=== PATIENT | male | born 1995 | race Caucasian/White ===

== ENCOUNTER 2018-08-16 13:17 | Inpatient (IN) | payer BC, OTHER ==
[2018-08-16] VITALS (13 sets, daily range): BP systolic 101–137; BP diastolic 67–86; PULSE 102–122; RESP 10–19; Ht 188 cm; Wt 80.0 kg
[~2018-08-16] VITALS: Ht 188 cm; Wt 80.0 kg
--- NOTE | 2018-08-16 13:28 | ERD ---
ER Documentation Chief Complaint Chief Complaint bib self, cc: "high heart rate, I think I have DKA" HPI The patient is a 23-year-old male, presenting to the ER because of vomiting, dry mouth, palpitation for 1 day, had similar symptom when he was diagnosed with DKA and new onset diabetes about 8 years ago. He is compliant with his medication, has had nasal congestion and cough for the last couple weeks, denies chest pain, dyspnea, abdominal pain, dysuria, diarrhea. He complains of polyuria. He does not smoke nor drink, smoke marijuana Past medical history: Diabetes mellitus Past surgical history: None ROS All systems reviewed and are negative except as per history of present illness. Medications Home Meds Reported Medications Insulin Glargine* (Lantus*) 100 Unit/Ml Soln, 48 UNIT SC QPM, #1 VIAL 08/16/18 Insulin Lispro (Humalog) 100 Unit/1 Ml Cartridge, 1-15 UNIT SQ PC MEALS, EA 08/16/18 Allergies Allergies: Coded Allergies: amoxicillin (Verified Allergy, Severe, 08/16/18) clavulanic acid (Verified Allergy, Severe, 08/16/18) Physical Exam Vitals Vital Signs Date Temp Pulse Resp B/P (MAP) Pulse Ox O2 O2 Flow FiO2 Time Delivery Rate 08/16/18 98.8 119 17 115/77 98 Room Air 15:07 (90) 08/16/18 98.2 123 19 118/89 99 Room Air 14:10 (99) 08/16/18 98.2 140 19 135/88 100 13:22 (104) Physical Exam Const: No acute distress. Dehydrated Head: Atraumatic. Eyes: Normal Conjunctiva. ENT: Normal External Ears, Nose and Mouth. Neck: Full range of motion. No meningismus. Resp: Clear to auscultation bilaterally. Cardio: Regular tachycardic Abd: Soft, non distended, normal bowel sounds, non tender. Skin: No petechiae or rashes. Back: No midline or flank tenderness. Ext: No cyanosis, or edema. Neur: Awake and alert. No focal deficit Psych: Normal Mood and Affect. Result Diagram: 08/16/18 1400 08/16/18 0638 Results 24 hrs Laboratory Tests Test 08/16/18 13:34 08/16/18 13:49 08/16/18 14:00 08/16/18 15:05 Blood Gas Blood venous Specimen Source Arterial Blood 08/16/2018 1:45: Date Drawn 29 PM Arterial Blood OTHER Gas Puncture Site Atilio Test N/A Venous Blood pH 7.230 Venous Blood 29.0 mmHG pCO2 (Temp Corrected) Venous Blood pO2 41.0 mmHG (Temp Corrected) Venous Blood 11.9 mmol/L HCO3 Venous Blood 71.1 mmHG Oxygen Saturation Venous Blood -13.9 mmol/L Base Excess Venous Blood 18.3 g/dl Total Hemoglobin Venous Blood 70.7 % Oxyhemoglobin Venous Blood 0.3 % Methemoglobin Blood Gas A-a O2 74.0 mmHg Differential Carboxyhemoglobi 0.3 % n Blood Gas 37.0 C Temperature Blood Gas ROOM AIR Modality FiO2 21.0 % Blood Gas JOSHI Critical Value Read Back Blood Gas MDA Notified Whom Blood Gas 08/16/2018 1:50: Notified Time 19 PM Bedside Glucose 576 mg/dL 343 mg/dL White Blood 10.0 10^3/ul Count Red Blood Count 5.46 10^6/ul Hemoglobin 16.8 g/dl Hematocrit 50.9 % Mean Corpuscular 93.2 fl Volume Mean Corpuscular 30.8 pg Hemoglobin Mean Corpuscular 33.0 g/dl Hemoglobin Shameka nt Red Cell 13.0 % Distribution Width Platelet Count 266 10^3/UL Mean Platelet 8.8 fl Volume Immature 0.400 % Granulocytes % Neutrophils % 79.1 % Lymphocytes % 14.3 % Monocytes % 5.9 % Eosinophils % 0.0 % Basophils % 0.3 % Nucleated Red 0.0 /100WBC Blood Cells % Immature 0.040 10^3/ul Granulocytes # Neutrophils # 7.9 10^3/ul Lymphocytes # 1.4 10^3/ul Monocytes # 0.6 10^3/ul Eosinophils # 0.0 10^3/ul Basophils # 0.0 10^3/ul Nucleated Red 0.0 10^3/ul Blood Cells # Urine Color STRAW Urine Clarity CLEAR Urine pH 5.0 Urine Specific 1.030 [place] Urine Ketones 2+ mg/dL Urine Nitrite NEGATIVE mg/dL Urine Bilirubin NEGATIVE mg/dL Urine NEGATIVE mg/dL Urobilinogen Urine Leukocyte NEGATIVE Brett/ul Esterase Urine Hemoglobin NEGATIVE mg/dL Urine Glucose 3+ mg/dL Urine Total NEGATIVE mg/dl Protein Sodium Level 137 mmol/L Potassium Level mmol/L Chloride Level 95 mmol/L Carbon Dioxide 12 mmol/L Level Anion Gap 30 Blood Urea 13 mg/dl Nitrogen Creatinine 1.00 mg/dl Est Glomerular > 60 mL/min Filtrat Rate mL/min Glucose Level 546 mg/dl Hemoglobin A1c 13.1 % Calcium Level 10.1 mg/dl Phosphorus Level 5.5 mg/dl Magnesium Level 1.8 mg/dl Urine Opiates Negative Screen Urine Negative Barbiturates Urine Negative Amphetamines Screen Urine Negative Benzodiazepines Screen Urine Cocaine Negative Screen Urine Negative Cannabinoids Ethyl Alcohol < 10.0 mg/dl Level Test 08/16/18 16:09 08/16/18 16:10 Bedside Glucose 281 mg/dL Sodium Level 139 mmol/L Potassium Level 4.3 mmol/L Chloride Level 100 mmol/L Carbon Dioxide 16 mmol/L Level Anion Gap 23 Blood Urea 12 mg/dl Nitrogen Creatinine 0.78 mg/dl Est Glomerular > 60 mL/min Filtrat Rate mL/min Glucose Level 287 mg/dl Calcium Level 9.5 mg/dl Phosphorus Level 3.4 mg/dl Magnesium Level 2.0 mg/dl Current Medications Medications Dose Sig/Paulie Start Time Status Last (Trade) Ordered Route PRN Stop Time Admin Dose Reason Admin Sodium 760 ml @ ONCE ONCE 08/16/18 DC 08/16/18 Chloride 760 mls/hr IV 14:00 14:09 08/16/18 14:59 Potassium 1,000 ml @ Q0M IV 08/16/18 Chloride/Sodi 0 mls/hr 15:11 um Chloride Potassium 1,000 ml @ Q0M IV 08/16/18 Chloride/Dext 0 mls/hr 15:11 marcus/ Sod Cl Potassium 1,000 ml @ Q0M IV 08/16/18 08/16/18 Chloride/Sodi 0 mls/hr 15:11 17:16 um Chloride Potassium 1,000 ml @ Q0M IV 08/16/18 08/16/18 Chloride/Dext 0 mls/hr 15:11 17:18 marcus/ Sod Cl Sodium 1,000 ml @ Q0M IV 08/16/18 Chloride 0 mls/hr 15:11 1,000 ml @ Q0M IV 08/16/18 Dextrose/Sodi 0 mls/hr 15:11 um Chloride Insulin 101 ml @ ER DKA 08/16/18 08/16/18 Human 7.64 mls/hr PROTOCOL IV 15:30 17:17 Regular 100 unit/ Sodium Chloride Lactated 760 ml @ ONCE ONCE 08/16/18 DC 08/16/18 Ringer's 760 mls/hr IV 15:30 15:20 08/16/18 16:30 HYPOGLYCEM 08/16/18 Miscellaneous HYPOGLYCEMIA PROTOCOL PRN 15:30 TREATMENT XX Information HYPOGLYCEMIA (* (BS<70) Miscellaneous Pharmacy Order) Dextrose 50 ml Q15M PRN 08/16/18 (D50w IV DECREASED 15:30 Syringe) GLUCOSE Dextrose 25 ml Q15M PRN 08/16/18 (D50w IV DECREASED 15:30 Syringe) GLUCOSE Procedures/[place] [id number] Radiology Main Line: [phone] DIAGNOSTIC IMAGING REPORT Patient: MARITZA RILEY : 1995 Age: 23 Sex: M MR #: [id number] DOS: 08/16/18 1343 Ordering MD: TYLER JOSHI MD Location: E/R Room/Bed: PROCEDURE: XR Chest. CLINICAL INDICATION: Cough TECHNIQUE: A single AP view of the chest was obtained. COMPARISON: None. FINDINGS: No focal airspace opacification, pleural effusion or pneumothorax is seen. The cardiomediastinal silhouette is within normal limits for size. The osseous structures are unremarkable. IMPRESSION: Unremarkable chest x-ray. RPTAT: HH .Samantha Sellers MD, MD Date Time Electronically viewed and signed by .Samantha Sellers MD, MD on 08/16/2018 14:06 .G/ CC: TYLER JOSHI MD [phone] EKG: Read by emergency physician Rate/Rhythm: Sinus tachycardia 118 beats/min QRS, ST, T-waves: No ST elevation, no T inversion, CANDY Impression: Abnormal EKG MEDICAL MAKING DECISION: The patient is 23-year-old male, presenting with acute DKA, was immediately treated via DKA protocol with good response The differential diagnoses considered include but are not limited to UTI, pneumonia, medical noncompliance, dehydration Critical Care: Time: 35 minutes excluding all billable procedures. Treatments/Evaluations: Close monitoring and treatment of unstable vital signs, cardiorespiratory, and neurologic status, while maintaining tight balance of fluid, respiratory, and cardiac interventions. Departure Diagnosis: Primary Impression: DKA (diabetic ketoacidoses) Condition: Stable Comments I discussed the findings with the patient. I discussed the patient with the hospitalist Dr. Alexis at 3:50 PM. who was made aware of the lab, the treatment, the patient condition. The patient is admitted to [facility] Disclaimer: Inadvertent spelling and grammatical errors are likely due to EHR/dictation software use and do not reflect on the overall quality of patient care. Also, please note that the electronic time recorded on this note does not necessarily reflect the actual time of the patient encounter. TYLER JOSHI MD Aug 16, 2018 13:28
[2018-08-16] MEDS ORDERED: SOD CHLORIDE 0.9% 760 ML IV ONE (14:00)
[2018-08-16] MEDS ORDERED: INSU100C SQ (14:18)
[2018-08-16] MEDS ORDERED: LANT3I SC (14:18)
[2018-08-16] MEDS ORDERED: SOD CHLORIDE 0.9% 1,000 ML IV SCH (15:11)
[2018-08-16] MEDS ORDERED: DEXTROSE 10 %/0.45 % NACL 1,000 ML IV SCH (15:11)
[2018-08-16] MEDS ORDERED: NS + KCL 40 MEQ 1,000 ML IV SCH (15:11)
[2018-08-16] MEDS ORDERED: NS + KCL 30 MEQ 1,000 ML IV SCH (15:11)
[2018-08-16] MEDS ORDERED: D10/0.45% NACL + KCL 40 MEQ 1,000 ML IV SCH (15:11)
[2018-08-16] MEDS ORDERED: DEXTROSE 50% 50 ML SYRINGE IV PRN ×2 (15:30)
[2018-08-16] MEDS ORDERED: LACTATED RINGER'S 760 ML IV ONE (15:30)
[2018-08-16] MEDS ORDERED: INSULIN REGULAR, HUMAN 100 UNIT in SOD CHLORIDE 0.9% 100 ML IV SCH ×2 (15:30)
--- NOTE | 2018-08-16 16:43 | HP ---
Date/Time of Note Date/Time of Note DATE: 08/16/18 TIME: 16:40 Assessment/Plan VTE Prophylaxis SCD applied (from Nsg): Yes Pharmacological prophylaxis: NA/contraindicated Pharm contraindication: low risk/ambulating Lines/Catheters IV Catheter Type (from Nrsg): Saline Lock Assessment/Plan Hospital Course 1. DKA in a patient with type 1 diabetes Admit to ICU DKA protocol with insulin and fluids as well as electrolyte replacement A1c 13.1 and hence poorly controlled No evidence of sepsis or infection Prophylaxis: SCDs Result Diagram: 08/16/18 1400 08/16/18 1400 Results 24hrs Laboratory Tests Test 08/16/18 13:34 08/16/18 13:49 08/16/18 14:00 08/16/18 15:05 Blood Gas Blood venous Specimen Source Arterial Blood 08/16/2018 1:45:2 Date Drawn 9 PM Arterial Blood OTHER Gas Puncture Site Atilio Test N/A Venous Blood pH 7.230 L Venous Blood pCO2 29.0 L (Temp Corrected) Venous Blood pO2 41.0 H (Temp Corrected) Venous Blood HCO3 11.9 L Venous Blood 71.1 Oxygen Saturation Venous Blood Base -13.9 L Excess Venous Blood 18.3 Total Hemoglobin Venous Blood 70.7 Oxyhemoglobin Venous Blood 0.3 Methemoglobin Blood Gas A-a O2 74.0 Differential Carboxyhemoglobin 0.3 Blood Gas 37.0 Temperature Blood Gas ROOM AIR Modality FiO2 21.0 Blood Gas JOSHI Critical Value Read Back Blood Gas MDA Notified Whom Blood Gas 08/16/2018 1:50:1 Notified Time 9 PM Bedside Glucose 576 *H 343 H White Blood Count 10.0 Red Blood Count 5.46 Hemoglobin 16.8 Hematocrit 50.9 Mean Corpuscular 93.2 Volume Mean Corpuscular 30.8 Hemoglobin Mean Corpuscular 33.0 Hemoglobin Concen t Red Cell 13.0 Distribution Width Platelet Count 266 Mean Platelet 8.8 Volume Immature 0.400 Granulocytes % Neutrophils % 79.1 H Lymphocytes % 14.3 L Monocytes % 5.9 Eosinophils % 0.0 Basophils % 0.3 Nucleated Red 0.0 Blood Cells % Immature 0.040 H Granulocytes # Neutrophils # 7.9 H Lymphocytes # 1.4 Monocytes # 0.6 Eosinophils # 0.0 Basophils # 0.0 Nucleated Red 0.0 Blood Cells # Urine Color STRAW Urine Clarity CLEAR Urine pH 5.0 Urine Specific 1.030 [place] Urine Ketones 2+ H Urine Nitrite NEGATIVE Urine Bilirubin NEGATIVE Urine NEGATIVE Urobilinogen Urine Leukocyte NEGATIVE Esterase Urine Hemoglobin NEGATIVE Urine Glucose 3+ H Urine Total NEGATIVE Protein Sodium Level 137 Potassium Level Chloride Level 95 L Carbon Dioxide 12 L Level Anion Gap 30 H Blood Urea 13 Nitrogen Creatinine 1.00 Est Glomerular > 60 Filtrat Rate mL/min Glucose Level 546 *H Hemoglobin A1c 13.1 H Calcium Level 10.1 Phosphorus Level 5.5 H Magnesium Level 1.8 Urine Opiates Negative Screen Urine Negative Barbiturates Urine Negative Amphetamines Screen Urine Negative Benzodiazepines Screen Urine Cocaine Negative Screen Urine Negative Cannabinoids Ethyl Alcohol < 10.0 H Level Test 08/16/18 16:09 Bedside Glucose 281 H HPI/ROS Admit Date/Time Admit Date/Time August 16, 2018 Hx of Present Illness Patient is a 23-year-old male with a history of type 1 diabetes diagnosed 8 years ago. Patient has not had an episode of DKA since his diagnosis, patient presents with malaise as well as cough for the past several days. In the ER patient was noted to be in DKA, patient denies any dysuria, changes in bowel habits or fevers. Patient started on DKA protocol in the ER. ROS Constitutional: nausea Eyes: no complaints ENT: no complaints Respiratory: cough Cardiovascular: no complaints Gastrointestinal: no complaints Genitourinary: no complaints Musculoskeletal: no complaints Skin: no complaints Neurologic: no complaints Endocrine: no complaints Lymphatic: no complaints Psychological: no complaints, nl mood/affect Immunologic: no complaints PMH/Family/Social Past Medical History Medical History: diabetes Medications Current Medications Potassium Chloride/Sodium Chloride 1,000 ml @ 0 mls/hr Q0M IV ; Start 08/16/18 at 15:11 Potassium Chloride/Dextrose/ Sod Cl 1,000 ml @ 0 mls/hr Q0M IV ; Start 08/16/18 at 15:11 Potassium Chloride/Sodium Chloride 1,000 ml @ 0 mls/hr Q0M IV ; Start 08/16/18 at 15:11 Potassium Chloride/Dextrose/ Sod Cl 1,000 ml @ 0 mls/hr Q0M IV ; Start 08/16/18 at 15:11 Sodium Chloride 1,000 ml @ 0 mls/hr Q0M IV ; Start 08/16/18 at 15:11 Dextrose/Sodium Chloride 1,000 ml @ 0 mls/hr Q0M IV ; Start 08/16/18 at 15:11 Insulin Human Regular 100 unit/ Sodium Chloride 101 ml @ 7.64 mls/hr ER DKA PROTOCOL IV ; Start 08/16/18 at 15:30 Miscellaneous Information (* Miscellaneous Pharmacy Order) HYPOGLYCEMIA TREATMENT HYPOGLYCEM PROTOCOL PRN XX HYPOGLYCEMIA (BS<70); Start 08/16/18 at 15:30 Dextrose (D50w Syringe) 50 ml Q15M PRN IV DECREASED GLUCOSE; Start 08/16/18 at 15:30 Dextrose (D50w Syringe) 25 ml Q15M PRN IV DECREASED GLUCOSE; Start 08/16/18 at 15:30 Coded Allergies: amoxicillin (Verified Allergy, Severe, 08/16/18) clavulanic acid (Verified Allergy, Severe, 08/16/18) Past Surgical History Past Surgical Hx: no surgical history Family History Significant Family History: no pertinent family hx Social History Alcohol Use: rarely Smoking Status: Never smoker Drug Use: none Exam/Review of Systems Vital Signs Vitals Vital Signs Date Temp Pulse Resp B/P (MAP) Pulse Ox O2 O2 Flow FiO2 Time Delivery Rate 08/16/18 98.8 119 17 115/77 98 Room Air 15:07 (90) Exam Constitutional: alert, oriented Respiratory: clear to auscultation Cardiovascular: regular rate and rhythm Gastrointestinal: soft; No distended Musculoskeletal: nl extremities to inspection MAURISIO CLAY Aug 16, 2018 16:43
[2018-08-16] MEDS ORDERED: ACETAMINOPHEN 325 MG TAB PO PRN (17:00)
[2018-08-16] MEDS ORDERED: morphine 2 MG INJ IV PRN (17:00)
[2018-08-16] MEDS ORDERED: DOCUSATE SODIUM 100 MG CAP PO PRN (17:00)
[2018-08-16] MEDS ORDERED: NACL 0.9% 3 ML SYG IV SCH (17:00)
[2018-08-16] MEDS ORDERED: ONDANSETRON 4 MG INJ IV PRN (17:00)
[2018-08-16] MEDS ORDERED: ZOLPIDEM 5 MG TAB PO PRN (17:00)
[2018-08-16] MEDS ORDERED: HYDROCODONE/APAP (5/325) TAB PO PRN (17:00)
[2018-08-16] MEDS: D10/0.45% NACL + KCL 30 MEQ 1,000 ML IV SCH ×2 (17:18→22:23)
[2018-08-17] VITALS (10 sets, daily range): BP systolic 105–128; BP diastolic 60–84; PULSE 89–103; RESP 13–20
[2018-08-17] MEDS ORDERED: INSULIN GLARGINE [LANTus] (100 UNITS/ML) SYG SC ONE ×2 (00:30)
[2018-08-17] MEDS: D10/0.45% NACL + KCL 30 MEQ 1,000 ML IV SCH (03:17)
[2018-08-17] MEDS ORDERED: POTASSIUM CHLORIDE (SR) 20 MEQ TAB PO ONE ×2 (04:12→08:30)
[2018-08-17] MEDS ORDERED: DEXTROSE 50% 50 ML SYRINGE IV PRN ×2 (04:30)
[2018-08-17] MEDS ORDERED: GLUCAGON 1 MG INJ IM PRN (04:30)
[2018-08-17] MEDS ORDERED: GLUCOSE GEL 15 GRAM TUBE PO PRN ×2 (04:30)
[2018-08-17] MEDS ORDERED: GLUCOSE GEL 15 GRAM TUBE BUCCAL PRN (04:30)
[2018-08-17] MEDS ORDERED: INSULIN ASPART [NOVOLOG] 3 ML PEN SC SCH ×2 (07:35)
--- NOTE | 2018-08-17 09:52 | PDOCDIS ---
Discharge Instructions CONDITION [id number] Patient Condition: [id number] Good HOME CARE INSTRUCTIONS: [id number] Special Diet: [id number] DIABETIC ACTIVITY: [id number] Activity Restrictions: [id number] No Restrictions FOLLOW UP/APPOINTMENTS Follow-up Plan FOLLOW UP WITH YOUR PCP IN 1-2 WEEKS MAURISIO CLAY Aug 17, 2018 09:52
[2018-08-17] MEDS ORDERED: LANT3I SC (10:16)
[2018-08-17] MEDS ORDERED: INSU100I12 SQ (10:16)
--- NOTE | 2018-08-17 14:47 | DS ---
Date/Time of Note Date/Time of Note DATE: 08/17/18 TIME: 14:38 Discharge Summary Admission/Discharge Info Admit Date/Time Aug 16, 2018 at 16:10 Discharge Date/Time Aug 17, 2018 at 11:00 Discharge Diagnosis 1. DKA in a patient with type 1 diabetes-resolved Status post DKA protocol DC with insulin A1c 13.1 and hence poorly controlled, patient understands the importance of outpatient follow-up No evidence of sepsis or infection Patient Condition: Good Hospital Course Patient is a 23-year-old male with a history of type 1 diabetes diagnosed 8 years ago. Patient presented with DKA, patient was admitted to the ICU and was started on DKA protocol. Patient had resolution of DKA and was stable for DC. Patient's A1c was 13.1 and hence poorly controlled, patient was advised on appropriate outpatient follow-up. Patient was prescribed insulin upon DC. On the day of discharge patient's vitals, labs and physical exam are stable patient has no acute complaints questions are answered. Home Meds Active Scripts Insulin Lispro (Humalog Kwikpen U-100) 100 Unit/1 Ml Insuln.pen, 5 UNIT SQ AC A, #1 EA 3 Refills Prov:MAURISIO CLAY 08/17/18 Insulin Glargine* (Lantus*) 100 Unit/Ml Soln, 50 UNIT SC QHS, #1 VIAL 3 Refills Prov:MAURISIO CLAY 08/17/18 Reported Medications Insulin Glargine* (Lantus*) 100 Unit/Ml Soln, 48 UNIT SC QPM, #1 VIAL 08/16/18 Insulin Lispro (Humalog) 100 Unit/1 Ml Cartridge, 1-15 UNIT SQ PC MEALS, EA 08/16/18 Follow-up Plan FOLLOW UP WITH YOUR PCP IN 1-2 WEEKS Primary Care Provider Care Physician No Primary Time spent on discharge: > 30 minutes MAURISIO CLAY Aug 17, 2018 14:47
[2018-08-18] MEDS ORDERED: ACCU-CHEK XX SCH (02:00)
== END 2018-08-17 11:00 | disposition home or self-care (01) | DRG 639 ==
LOC: E/R 13:17 → ICU 16:10
PROVIDERS: ADMIT Internal Medicine; ATTEND Internal Medicine
DX: E11.10 Type 2 diabetes mellitus with ketoacidosis without coma (principal)
CPT/HCPCS: 36415; 71045; 80048; 80307; 81003; 82803; 82962; 83036; 83735; 84100; 85025; 87081; 93005; 96360; J1815; J7030; J7120

== ENCOUNTER 2019-03-07 12:14 | Inpatient (IN) | payer BC, MEDICAID, OTHER ==
[~2019-03-07] VITALS: Ht 188 cm; Wt 87.2 kg
[2019-03-07] VITALS (9 sets, daily range): BP systolic 105–134; BP diastolic 53–90; PULSE 86–114; RESP 13–19; Ht 188 cm; Wt 87.2 kg
[~2019-03-07 12:14] MED LIST: INSU100C SQ; INSU100I12 SQ; Insulin Glargine SC; LANT3I SC; NOVO3I SC
[2019-03-07] MEDS ORDERED: SOD CHLORIDE 0.9% 1,000 ML IV STA (12:24)
[2019-03-07] MEDS ORDERED: LACTATED RINGER'S 1,000 ML IV STA (12:24)
[2019-03-07] MEDS ORDERED: ONDANSETRON 4 MG INJ IV STA (12:24)
[2019-03-07] MEDS ORDERED: D10/0.45% NACL + KCL 40 MEQ 1,000 ML IV SCH (13:09)
[2019-03-07] MEDS ORDERED: NS + KCL 40 MEQ 1,000 ML IV SCH (13:09)
[2019-03-07] MEDS ORDERED: SOD CHLORIDE 0.9% 1,000 ML IV SCH (13:09)
[2019-03-07] MEDS ORDERED: DEXTROSE 10%/0.45% NACL 1,000 ML IV SCH (13:09)
[2019-03-07] MEDS ORDERED: DEXTROSE 50% 50 ML SYRINGE IV PRN ×2 (13:30)
--- NOTE | 2019-03-07 13:53 | ERD ---
ER Documentation Chief Complaint Chief Complaint VOMITING X 10, TACHYPNEIC HPI 23-year-old male presenting with vomiting and generalized abdominal aching that started this morning. He states that he ate noodles last night at dinner. He is a type I diabetic and uses insulin regularly. He notices sugar was high so he came in for evaluation. Denies any fevers or chills. No diarrhea. No chest pain or shortness of breath. ROS All systems reviewed and are negative except as per history of present illness. Medications Home Meds Reported Medications Insulin Lispro (Humalog Kwikpen U-100) 100 Unit/1 Ml Insuln.pen, 1 UNIT SQ WITH MEALS, EA 03/07/19 Insulin Glargine* (Lantus*) 100 Unit/Ml Soln, 45 UNIT SC QHS, #1 VIAL 03/07/19 Discontinued Reported Medications Insulin Glargine* (Lantus*) 100 Unit/Ml Soln, 48 UNIT SC QPM, #1 VIAL 08/16/18 Insulin Lispro (Humalog) 100 Unit/1 Ml Cartridge, 1-15 UNIT SQ PC MEALS, EA 08/16/18 Discontinued Scripts Insulin Lispro (Humalog Kwikpen U-100) 100 Unit/1 Ml Insuln.pen, 5 UNIT SQ AC A, #1 EA 3 Refills Prov:MAURISIO CLAY 08/17/18 Insulin Glargine* (Lantus*) 100 Unit/Ml Soln, 50 UNIT SC QHS, #1 VIAL 3 Refills Prov:CLAYTON CLAYA 08/17/18 Allergies Allergies: Coded Allergies: amoxicillin (Verified Allergy, Severe, 03/07/19) clavulanic acid (Verified Allergy, Severe, 03/07/19) PMhx/Soc History of Surgery: No Hx Neurological Disorder: Yes (Attention Deficit Disorder) Hx Respiratory Disorders: No Hx Cardiac Disorders: No Hx Psychiatric Problems: No Hx Miscellaneous Medical Probl: No Hx Alcohol Use: No Hx Substance Use: Yes (Marijuana) Hx Tobacco Use: No Smoking Status: Current every day smoker FmHx Family History: No diabetes Physical Exam Vitals Vital Signs Date Temp Pulse Resp B/P (MAP) Pulse Ox O2 O2 Flow FiO2 Time Delivery Rate 03/07/19 100 18 131/84 99 Room Air 13:20 (100) 03/07/19 97.8 114 24 135/81 99 12:21 (99) Physical Exam Const: No acute distress Head: Atraumatic Eyes: Normal Conjunctiva, PERRLA, EOMI ENT: Dry mucous membranes. Normal External Ears, Nose and Mouth. Neck: Full range of motion. No meningismus. Resp: Tachypnea. Clear to auscultation bilaterally Cardio: Tachycardic with regular rhythm, no murmurs Abd: Soft, non tender, non distended. Normal bowel sounds Skin: No petechiae or rashes Back: No midline or flank tenderness Ext: No cyanosis, or edema Neur: Awake and alert, oriented x3, normal speech, cranial nerves intact, strength and sensations intact in all 4 extremities Psych: Normal Mood and Affect Result Diagram: 03/07/19 1236 03/07/19 1236 Results 24 hrs Laboratory Tests Test 03/07/19 12:30 03/07/19 12:36 03/07/19 13:20 03/07/19 13:45 Bedside Glucose 436 mg/dL White Blood 13.0 10^3/ul Count Red Blood Count 5.64 10^6/ul Hemoglobin 17.2 g/dl Hematocrit 50.7 % Mean Corpuscular 89.9 fl Volume Mean Corpuscular 30.5 pg Hemoglobin Mean Corpuscular 33.9 g/dl Hemoglobin Shameka nt Red Cell 12.5 % Distribution Width Platelet Count 281 10^3/UL Mean Platelet 9.2 fl Volume Immature 0.600 % Granulocytes % Neutrophils % 82.2 % Lymphocytes % 12.0 % Monocytes % 4.7 % Eosinophils % 0.1 % Basophils % 0.4 % Nucleated Red 0.0 /100WBC Blood Cells % Immature 0.080 10^3/ul Granulocytes # Neutrophils # 10.7 10^3/ul Lymphocytes # 1.6 10^3/ul Monocytes # 0.6 10^3/ul Eosinophils # 0.0 10^3/ul Basophils # 0.1 10^3/ul Nucleated Red 0.0 10^3/ul Blood Cells # Sodium Level 139 mmol/L Potassium Level 5.2 mmol/L Chloride Level 98 mmol/L Carbon Dioxide 15 mmol/L Level Anion Gap 26 Blood Urea 14 mg/dl Nitrogen Creatinine 0.97 mg/dl Est Glomerular > 60 mL/min Filtrat Rate mL/min Glucose Level 478 mg/dl Hemoglobin A1c 12.7 % Calcium Level 10.5 mg/dl Total Bilirubin 1.1 mg/dl Direct Bilirubin 0.00 mg/dl Indirect 1.1 mg/dl Bilirubin Aspartate Amino 27 IU/L Transf (AST/SGOT ) Alanine 29 IU/L Aminotransferase (ALT/SGPT) Alkaline 133 IU/L Phosphatase Total Protein 8.4 g/dl Albumin 5.4 g/dl Globulin 3.00 g/dl Albumin/Globulin 1.80 Ratio Urine Color STRAW Urine Clarity CLEAR Urine pH 5.0 Urine Specific 1.027 [place] Urine Ketones 2+ mg/dL Urine Nitrite NEGATIVE mg/dL Urine Bilirubin NEGATIVE mg/dL Urine NEGATIVE mg/dL Urobilinogen Urine Leukocyte NEGATIVE Brett/ul Esterase Urine Hemoglobin NEGATIVE mg/dL Urine Glucose 3+ mg/dL Urine Total NEGATIVE mg/dl Protein Blood Gas Blood venous Specimen Source Arterial Blood 03/07/2019 1:40:0 Date Drawn 0 PM Arterial Blood VENOUS LINE Gas Puncture Site Atilio Test N/A Venous Blood pH 7.182 Venous Blood 36.1 mmHG pCO2 (Temp Corrected) Venous Blood pO2 24.0 mmHG (Temp Corrected) Venous Blood 13.2 mmol/L HCO3 Venous Blood 36.5 mmHG Oxygen Saturation Venous Blood -14.1 mmol/L Base Excess Venous Blood 16.9 g/dl Total Hemoglobin Venous Blood 36.0 % Oxyhemoglobin Venous Blood 0.5 % Methemoglobin Carboxyhemoglobi 0.9 % n Blood Gas 37.0 C Temperature Blood Gas ROOM AIR Modality FiO2 21.0 % Blood Gas PATRICIA Critical Value MIGUEL RN Read Back Blood Gas Notified Whom Blood Gas 03/07/2019 1:58:0 Notified Time 0 PM Current Medications Medications Dose Sig/Paulie Start Time Status Last (Trade) Ordered Route PRN Stop Time Admin Dose Reason Admin Sodium 1,000 ml @ Q1H STAT 03/07/19 DC 03/07/19 Chloride 1,000 mls/hr IV 12:24 03/07/19 12:47 13:23 Lactated 1,000 ml @ Q1H STAT 03/07/19 DC 03/07/19 Ringer's 1,000 mls/hr IV 12:24 03/07/19 12:48 13:23 Ondansetron 4 mg ONCE STAT 03/07/19 DC 03/07/19 HCl (Zofran IV 12:24 03/07/19 12:47 Inj) 12:25 Potassium 1,000 ml @ Q0M IV 03/07/19 Chloride/Sodi 0 mls/hr 13:09 um Chloride Potassium 1,000 ml @ Q0M IV 03/07/19 Chloride/Dext 0 mls/hr 13:09 marcus/ Sod Cl Potassium 1,000 ml @ Q0M IV 03/07/19 Chloride/Sodi 0 mls/hr 13:09 um Chloride Potassium 1,000 ml @ Q0M IV 03/07/19 Chloride/Dext 0 mls/hr 13:09 marcus/ Sod Cl Sodium 1,000 ml @ Q0M IV 03/07/19 Chloride 0 mls/hr 13:09 1,000 ml @ Q0M IV 03/07/19 Dextrose/Sodi 0 mls/hr 13:09 um Chloride Insulin 101 ml @ ER DKA 03/07/19 Human 9.09 mls/hr PROTOCOL IV 13:30 Regular 100 unit/ Sodium Chloride HYPOGLYCEM 03/07/19 Miscellaneous HYPOGLYCEMIA PROTOCOL PRN 13:30 TREATMENT XX Information .HYPOGLYCEMIA (* PROTOCOL Miscellaneous Pharmacy Order) Dextrose 50 ml Q15M PRN 03/07/19 (D50w IV 13:30 Syringe) .DECREASED GLUCOSE Dextrose 25 ml Q15M PRN 03/07/19 (D50w IV 13:30 Syringe) .DECREASED GLUCOSE Ondansetron 4 mg Q6H PRN 03/07/19 HCl (Zofran IV NAUSEA 14:00 Inj) AND/OR VOMITING 650 mg Q6H PRN 03/07/19 Acetaminophen PO PAIN 14:00 (Tylenol LEVEL 1-3 OR Tab) FEVER Docusate 100 mg Q12H PRN 03/07/19 Sodium PO 14:00 (Colace) CONSTIPATION Magnesium 30 ml DAILY PRN 03/07/19 Hydroxide PO 14:00 (Milk Of Mag) CONSTIPATION Famotidine 20 mg Q12 IV 03/07/19 (Pepcid Iv) 21:00 Enoxaparin 40 mg DAILY SC 03/08/19 Sodium 09:00 (Lovenox) Procedures/[facility] EMERGENT LABS AND DIAGNOSTIC STUDIES: Lab Results above were reviewed and interpreted by me. CBC: Mild leukocytosis, likely stress response CMP: Borderline hyperkalemia with evidence of acidosis and hyperglycemia, concerning for DKA. No evidence of clinically significant electrolyte abnormality, acidosis, renal failure, liver disease UA: 2+ ketones. 3+ glucose. No evidence of infection Initial Nursing notes reviewed. Previous Medical Records requested via the Electronic Health Record. EMERGENCY DEPARTMENT COURSE / MEDICAL DECISION MAKING: Patient is presenting with vomiting and hyperglycemia, concerning for possible DKA. Lower suspicion for acute surgical abdomen or gastroenteritis. He was tachycardic and tachypneic on arrival. 2 L IV fluid ordered initially. Labs are consistent with DKA. Protocol initiated with insulin and fluids. Patient will be admitted to the ICU for further management and stabilization. Critical Care Time: 35 minutes Treatments/Evaluations: Close monitoring and treatment of unstable vital signs, cardiorespiratory, and neurologic status, while maintaining tight balance of fluid, respiratory, and cardiac interventions. This time includes discussing the case with the patient and the patients family. This time does not include all procedures stated elsewhere in this record. This time also includes reviewing old records, labs and radiological studies. This time includes examining and re- examining the patient. Additionally, this time also includes arranging care with admitting and consulting physicians. Departure Diagnosis: Primary Impression: Diabetic ketoacidosis Diabetes mellitus type: type 1 Diabetes mellitus complication detail: without coma Qualified Codes: E10.10 - Type 1 diabetes mellitus with ketoacidosis without coma Condition: Critical EKJERROD ORTEZ MD Mar 07, 2019 13:53
[2019-03-07] MEDS ORDERED: ONDANSETRON 4 MG INJ IV PRN (14:00)
[2019-03-07] MEDS ORDERED: MAGNESIUM HYDROXIDE 30ML CUP PO PRN (14:00)
[2019-03-07] MEDS ORDERED: DOCUSATE SODIUM 100 MG CAP PO PRN (14:00)
[2019-03-07] MEDS ORDERED: ACETAMINOPHEN 325 MG TAB PO PRN (14:00)
[2019-03-07] MEDS: INSULIN REGULAR, HUMAN 100 UNIT in SOD CHLORIDE 0.9% 100 ML IV SCH ×2 (14:23)
[2019-03-07] MEDS: NS + KCL 30 MEQ 1,000 ML IV SCH ×2 (14:24→20:22)
--- NOTE | 2019-03-07 15:25 | HP ---
Date/Time of Note Date/Time of Note DATE: 03/07/19 TIME: 15:08 Assessment/Plan VTE Prophylaxis SCD applied (from Nsg): Yes Pharmacological prophylaxis: LMWH Lines/Catheters IV Catheter Type (from Nrsg): Saline Lock Assessment/Plan Assessment/Plan 1. Acute diabetic ketoacidosis - continue IVF and Insulin drip per DKA protocol - will monitor BMP for closure of gap - Will consult endocrinology for further recommendations given DM is uncontrolled as outpatient - most likely secondary to dehydration following vomiting 2. Diabetes mellitus type 1, uncontrolled - Patient admits to medication compliance and takes Lantus qhs and humalog with meals. - A2c noted 12.7 - Will transition to SQ once gap closes - Endocrinology consultation placed 3. Acute dehydration - IVF on board 4. Anion gap Metabolic acidosis 5. Diet - NPO for now 6. GI ppx - H2 kevin 7. DVT ppx - LMWH 8. Disposition - Admit to ICU for treatment of DKA. Will continue monitoring BMP and once gap closes will transition to SQ Insulin. Result Diagram: 03/07/19 1236 03/07/19 1236 Results 24hrs Laboratory Tests Test 03/07/19 12:30 03/07/19 12:36 03/07/19 13:20 03/07/19 13:45 Bedside Glucose 436 *H White Blood Count 13.0 #H Red Blood Count 5.64 # Hemoglobin 17.2 Hematocrit 50.7 Mean Corpuscular 89.9 Volume Mean Corpuscular 30.5 Hemoglobin Mean Corpuscular 33.9 Hemoglobin Concent Red Cell 12.5 Distribution Width Platelet Count 281 # Mean Platelet 9.2 Volume Immature 0.600 H Granulocytes % Neutrophils % 82.2 H Lymphocytes % 12.0 L Monocytes % 4.7 Eosinophils % 0.1 Basophils % 0.4 Nucleated Red 0.0 Blood Cells % Immature 0.080 H Granulocytes # Neutrophils # 10.7 H Lymphocytes # 1.6 Monocytes # 0.6 Eosinophils # 0.0 Basophils # 0.1 Nucleated Red 0.0 Blood Cells # Sodium Level 139 Potassium Level 5.2 H Chloride Level 98 Carbon Dioxide 15 L Level Anion Gap 26 H Blood Urea 14 Nitrogen Creatinine 0.97 Est Glomerular > 60 Filtrat Rate mL/min Glucose Level 478 *H Hemoglobin A1c 12.7 H Calcium Level 10.5 H Total Bilirubin 1.1 Direct Bilirubin 0.00 Indirect Bilirubin 1.1 Aspartate Amino 27 Transf (AST/SGOT) Alanine 29 Aminotransferase ( ALT/SGPT) Alkaline 133 H Phosphatase Total Protein 8.4 H Albumin 5.4 H Globulin 3.00 Albumin/Globulin 1.80 Ratio Urine Color STRAW Urine Clarity CLEAR Urine pH 5.0 Urine Specific 1.027 [place] Urine Ketones 2+ H Urine Nitrite NEGATIVE Urine Bilirubin NEGATIVE Urine Urobilinogen NEGATIVE Urine Leukocyte NEGATIVE Esterase Urine Hemoglobin NEGATIVE Urine Glucose 3+ H Urine Total NEGATIVE Protein Blood Gas Specimen Blood venous Source Arterial Blood 03/07/2019 1:40:00 Date Drawn PM Arterial Blood Gas VENOUS LINE Puncture Site Atilio Test N/A Venous Blood pH 7.182 *L Venous Blood pCO2 36.1 (Temp Corrected) Venous Blood pO2 24.0 L (Temp Corrected) Venous Blood HCO3 13.2 L Venous Blood 36.5 L Oxygen Saturation Venous Blood Base -14.1 L Excess Venous Blood Total 16.9 Hemoglobin Venous Blood 36.0 Oxyhemoglobin Venous Blood 0.5 Methemoglobin Carboxyhemoglobin 0.9 Blood Gas 37.0 Temperature Blood Gas Modality ROOM AIR FiO2 21.0 Blood Gas Critical PATRICIA MIGUEL RN Value Read Back Blood Gas Notified Whom Blood Gas Notified 03/07/2019 1:58:00 Time PM Test 03/07/19 14:17 Bedside Glucose 321 H HPI/ROS Admit Date/Time Admit Date/Time Mar 07, 2019 at 13:25 Hx of Present Illness 23 yo M with PMH Diabetes type 1 presented to ED with multiple episodes of vomiting this am. Patient states he believes he ate something last night that irritated his stomach. He admits to vomiting 10 times this am with last episode at 11:45. Patient does admit to taking his Lantus last night and took 15 units of Humalog today prior to ED visit since knew he was in DKA. Patient does admit to feeling off balance and shortness of breath with exertion, but denies any chest pain, shortness of breath, palpitations, nausea, further episodes of vomiting, abdominal pain, or urinary issues. In ED patient was found in DKA and started on insulin drip. ROS All 12 systems reviewed and pertinent positives as per HPI. All others negative. Constitutional: chills; No fatigue Eyes: No discharge ENT: No congestion Respiratory: shortness of breath (with ambulation); No cough, No sputum, No wheezing Cardiovascular: No chest pain, No lightheadedness, No palpitations Gastrointestinal: vomiting; No pain, No constipation, No decreased appetite, No nausea Genitourinary: no complaints Musculoskeletal: no complaints Skin: No laceration, No rash Neurologic: No confusion, No dizziness, No focal-weakness, No syncope Endocrine: no complaints Lymphatic: no complaints Psychological: nl mood/affect Immunologic: no complaints PMH/Family/Social Past Medical History Medical History: diabetes Medications Current Medications Potassium Chloride/Sodium Chloride 1,000 ml @ 0 mls/hr Q0M IV ; Start 03/07/19 at 13:09 Potassium Chloride/Dextrose/ Sod Cl 1,000 ml @ 0 mls/hr Q0M IV ; Start 03/07/19 at 13:09 Potassium Chloride/Sodium Chloride 1,000 ml @ 0 mls/hr Q0M IV Last administered on 03/07/19at 14:24; Admin Dose 250 MLS/HR; Start 03/07/19 at 13:09 Potassium Chloride/Dextrose/ Sod Cl 1,000 ml @ 0 mls/hr Q0M IV ; Start 03/07/19 at 13:09 Sodium Chloride 1,000 ml @ 0 mls/hr Q0M IV ; Start 03/07/19 at 13:09 Dextrose/Sodium Chloride 1,000 ml @ 0 mls/hr Q0M IV ; Start 03/07/19 at 13:09 Insulin Human Regular 100 unit/ Sodium Chloride 101 ml @ 9.09 mls/hr ER DKA PROTOCOL IV Last administered on 03/07/19at 14:23; Admin Dose 9.09 MLS/HR; Start 03/07/19 at 13:30 Miscellaneous Information (* Miscellaneous Pharmacy Order) HYPOGLYCEMIA TREATMENT HYPOGLYCEM PROTOCOL PRN XX .HYPOGLYCEMIA PROTOCOL; Start 03/07/19 at 13:30 Dextrose (D50w Syringe) 50 ml Q15M PRN IV .DECREASED GLUCOSE; Start 03/07/19 at 13:30 Dextrose (D50w Syringe) 25 ml Q15M PRN IV .DECREASED GLUCOSE; Start 03/07/19 at 13:30 Ondansetron HCl (Zofran Inj) 4 mg Q6H PRN IV NAUSEA AND/OR VOMITING; Start 03/07/19 at 14:00 Acetaminophen (Tylenol Tab) 650 mg Q6H PRN PO PAIN LEVEL 1-3 OR FEVER; Start 03/07/19 at 14:00 Docusate Sodium (Colace) 100 mg Q12H PRN PO CONSTIPATION; Start 03/07/19 at 14:00 Magnesium Hydroxide (Milk Of Mag) 30 ml DAILY PRN PO CONSTIPATION; Start 03/07/19 at 14:00 Famotidine (Pepcid Iv) 20 mg Q12 IV ; Start 03/07/19 at 21:00 Enoxaparin Sodium (Lovenox) 40 mg DAILY SC ; Start 03/08/19 at 09:00 Coded Allergies: amoxicillin (Verified Allergy, Severe, 03/07/19) clavulanic acid (Verified Allergy, Severe, 03/07/19) Past Surgical History Past Surgical Hx: no surgical history Family History Significant Family History: no pertinent family hx Social History Alcohol Use: none Smoking Status: Current every day smoker Drug Use: none Exam/Review of Systems Vital Signs Vitals Vital Signs Date Temp Pulse Resp B/P (MAP) Pulse Ox O2 O2 Flow FiO2 Time Delivery Rate 03/07/19 96 18 122/105 99 Room Air 14:30 (111) 03/07/19 97.8 12:21 Exam Exam General: no acute distress. answering questions appropriately. HEENT: NC/AT. PERRL. EOM intact. Neck: supple, midline Chest: nontender CVS: S1, S2, regular rate and rhythm. no murmurs lungs: clear to auscultation bilaterally. no wheezing or rhonchi Abd: soft, nontender, nondistended, no rebound or guarding. +BS all quadrants Ext: moving all extremities. no cyanosis, edema, or clubbing Skin: no rashes or lesions appreciated. warm and dry Neuro: no focal deficits appreciated. CN 2-12 intact. motor and sensory intact Additional Comments Home medications noted DELFINA MEJIA MD Mar 07, 2019 15:25
[2019-03-07] MEDS: D10/0.45% NACL + KCL 30 MEQ 1,000 ML IV SCH (15:41)
--- NOTE | 2019-03-07 18:12 | CONS ---
Assessment/Plan Assessment/Plan Problems: (1) Diabetic ketoacidosis Status: Acute Comment: DKA protocol until anion gap closed and CO2 normal. Defer to primary team and will be happy to assist as necessary. Qualifiers: Qualified Codes: E10.10 - Type 1 diabetes mellitus with ketoacidosis without coma (2) Diabetes mellitus type 1, uncontrolled, insulin dependent Status: Chronic Comment: Advised insulin regimen is "basal-heavy." Likely needs less lantus and more meal-time insulin. Will decrease lantus from 45 to 30 units qhs and start Novolog 14 units qac plus alg 2 ISS. This would be equivalent of 1 unit to 6 g carb plus 1 unit to 25 mg/dL over 150 mg/dL. Monitor and adjust doses daily to titrate to goal glucose 80-180 mg/dL. (3) Patient's other noncompliance with medication regimen Status: Chronic Comment: Pt. advised that rapid-acting insulin must be taken BEFORE food intake and that glucose checks should be done at least 4x/d Consultation Date/Type/Reason Admit Date/Time Mar 07, 2019 at 13:25 Date of Consultation: Mar 07, 2019 Type of Consult Endocrinology Reason for Consultation DKA, T1DM OOC Requesting Provider: DELFINA MEJIA MD Date/Time of Note DATE: 03/07/19 TIME: 18:00 Hx of Present Illness 23 y/o C M w/ h/o T1DM x 8 y, longstanding OOC in [facility] until this am when he awoke w/ nausea. Register that this was due to something he ate last night. Subsequently went into DKA and since he recognized the symptoms he took 15 units of Humalog and came to ER. In ER (+) ketonuria, glucose elevated, CO2 15, AG open. Started insulin drip protocol and admitted. Constitutional: poor po, requiring IVF Eyes: no complaints ENT: no complaints Respiratory: no complaints Cardiovascular: no complaints Gastrointestinal: decreased appetite, nausea, vomiting Genitourinary: no complaints Musculoskeletal: no complaints Neurologic: no complaints Past Medical History Medical History: diabetes Home Meds Reported Medications Insulin Lispro (Humalog Kwikpen U-100) 100 Unit/1 Ml Insuln.pen, 1 UNIT SQ WITH MEALS, EA 03/07/19 Insulin Glargine* (Lantus*) 100 Unit/Ml Soln, 45 UNIT SC QHS, #1 VIAL 03/07/19 Discontinued Reported Medications Insulin Glargine* (Lantus*) 100 Unit/Ml Soln, 48 UNIT SC QPM, #1 VIAL 08/16/18 Insulin Lispro (Humalog) 100 Unit/1 Ml Cartridge, 1-15 UNIT SQ PC MEALS, EA 08/16/18 Discontinued Scripts Insulin Lispro (Humalog Kwikpen U-100) 100 Unit/1 Ml Insuln.pen, 5 UNIT SQ AC A, #1 EA 3 Refills Prov:MAURISIO CLAY 08/17/18 Insulin Glargine* (Lantus*) 100 Unit/Ml Soln, 50 UNIT SC QHS, #1 VIAL 3 Refills Prov:MAURISIO CLAY 08/17/18 Medications Current Medications Potassium Chloride/Sodium Chloride 1,000 ml @ 0 mls/hr Q0M IV ; Start 03/07/19 at 13:09 Potassium Chloride/Dextrose/ Sod Cl 1,000 ml @ 0 mls/hr Q0M IV ; Start 03/07/19 at 13:09 Potassium Chloride/Sodium Chloride 1,000 ml @ 0 mls/hr Q0M IV Last administered on 03/07/19at 14:24; Admin Dose 250 MLS/HR; Start 03/07/19 at 13:09 Potassium Chloride/Dextrose/ Sod Cl 1,000 ml @ 0 mls/hr Q0M IV Last administered on 03/07/19at 15:41; Admin Dose 150 MLS/HR; Start 03/07/19 at 13:09 Sodium Chloride 1,000 ml @ 0 mls/hr Q0M IV ; Start 03/07/19 at 13:09 Dextrose/Sodium Chloride 1,000 ml @ 0 mls/hr Q0M IV ; Start 03/07/19 at 13:09 Insulin Human Regular 100 unit/ Sodium Chloride 101 ml @ 9.09 mls/hr ER DKA PROTOCOL IV Last administered on 03/07/19at 14:23; Admin Dose 9.09 MLS/HR; Start 03/07/19 at 13:30 Miscellaneous Information (* Miscellaneous Pharmacy Order) HYPOGLYCEMIA TREATMENT HYPOGLYCEM PROTOCOL PRN XX .HYPOGLYCEMIA PROTOCOL; Start 03/07/19 at 13:30 Dextrose (D50w Syringe) 50 ml Q15M PRN IV .DECREASED GLUCOSE; Start 03/07/19 at 13:30 Dextrose (D50w Syringe) 25 ml Q15M PRN IV .DECREASED GLUCOSE; Start 03/07/19 at 13:30 Acetaminophen (Tylenol Tab) 650 mg Q6H PRN PO PAIN LEVEL 1-3 OR FEVER; Start 03/07/19 at 14:00 Docusate Sodium (Colace) 100 mg Q12H PRN PO CONSTIPATION; Start 03/07/19 at 14:00 Magnesium Hydroxide (Milk Of Mag) 30 ml DAILY PRN PO CONSTIPATION; Start 03/07/19 at 14:00 Famotidine (Pepcid Iv) 20 mg Q12 IV ; Start 03/07/19 at 21:00 Enoxaparin Sodium (Lovenox) 40 mg DAILY SC ; Start 03/08/19 at 09:00 Ondansetron HCl (Zofran Inj) 4 mg Q4H PRN IV NAUSEA AND/OR VOMITING; Start 03/07/19 at 18:00 Allergies: Coded Allergies: amoxicillin (Verified Allergy, Severe, 03/07/19) clavulanic acid (Verified Allergy, Severe, 03/07/19) Past Surgical History Past Surgical Hx: no surgical history Family History Significant Family History: diabetes (type 2), other (depression) Social History b. 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 Alcohol Use: rarely Smoking Status: Never smoker Drug Use: marijuana (2-3 times/d) Exam/Review of Systems Exam Vitals VS - Last 72 Hours, by Label Date Temp Pulse Resp B/P (MAP) Pulse Ox O2 O2 Flow FiO2 Time Delivery Rate 03/07/19 96 18 122/105 99 Room Air 14:30 (111) 03/07/19 100 18 131/84 99 Room Air 13:20 (100) 03/07/19 97.8 114 24 135/81 99 12:21 (99) Vital Signs Date Temp Pulse Resp B/P (MAP) Pulse Ox O2 O2 Flow FiO2 Time Delivery Rate 03/07/19 96 18 122/105 99 Room Air 14:30 (111) 03/07/19 97.8 12:21 Constitutional: alert, oriented, well developed, distress (appears uncomfortable, acutely ill, diaphoretic) Psych: no complaints, nl mood/affect Eyes: nl conjunctiva, EOMI, nl lids, nl sclera, PERRL ENMT: nl external ears & nose Neck: supple, non-tender; No bruits, No masses, No thyromegaly Respiratory: clear to auscultation, normal air movement Cardiovascular: regular rate and rhythm, nl pulses; No edema, No murmurs/extra sounds, No rub Gastrointestinal: soft, nl liver, spleen, non-tender, bowel sounds; No mass, No rebound or guarding Musculoskeletal: nl extremities to inspection Extremities: normal pulses; No cyanosis, No clubbing, No edema Neurological: READING [employer]OVERY TE[employer]ER II-XII intact, nl mental status, nl speech, nl strength Additional Comments Bedside Glucose - 72 Hours Test 03/07/19 12:30 03/07/19 14:17 03/07/19 15:18 03/07/19 16:26 Bedside 436 321 283 289 Glucose mg/dL (70-220) mg/dL (70-220) mg/dL (70-220) mg/dL (70-220) *H H H H Test 03/07/19 17:18 Bedside 317 Glucose mg/dL (70-220) H Results Result Diagram: 03/07/19 1236 03/07/19 1519 Results 24hrs Laboratory Tests Test 03/07/19 12:30 03/07/19 12:36 03/07/19 13:20 03/07/19 13:45 Bedside Glucose 436 *H White Blood 13.0 #H Count Red Blood Count 5.64 # Hemoglobin 17.2 Hematocrit 50.7 Mean Corpuscular 89.9 Volume Mean Corpuscular 30.5 Hemoglobin Mean Corpuscular 33.9 Hemoglobin Shameka nt Red Cell 12.5 Distribution Width Platelet Count 281 # Mean Platelet 9.2 Volume Immature 0.600 H Granulocytes % Neutrophils % 82.2 H Lymphocytes % 12.0 L Monocytes % 4.7 Eosinophils % 0.1 Basophils % 0.4 Nucleated Red 0.0 Blood Cells % Immature 0.080 H Granulocytes # Neutrophils # 10.7 H Lymphocytes # 1.6 Monocytes # 0.6 Eosinophils # 0.0 Basophils # 0.1 Nucleated Red 0.0 Blood Cells # Sodium Level 139 Potassium Level 5.2 H Chloride Level 98 Carbon Dioxide 15 L Level Anion Gap 26 H Blood Urea 14 Nitrogen Creatinine 0.97 Est Glomerular > 60 Filtrat Rate mL/min Glucose Level 478 *H Hemoglobin A1c 12.7 H Calcium Level 10.5 H Total Bilirubin 1.1 Direct Bilirubin 0.00 Indirect 1.1 Bilirubin Aspartate Amino 27 Transf (AST/SGOT ) Alanine 29 Aminotransferase (ALT/SGPT) Alkaline 133 H Phosphatase Total Protein 8.4 H Albumin 5.4 H Globulin 3.00 Albumin/Globulin 1.80 Ratio Urine Color STRAW Urine Clarity CLEAR Urine pH 5.0 Urine Specific 1.027 [place] Urine Ketones 2+ H Urine Nitrite NEGATIVE Urine Bilirubin NEGATIVE Urine NEGATIVE Urobilinogen Urine Leukocyte NEGATIVE Esterase Urine Hemoglobin NEGATIVE Urine Glucose 3+ H Urine Total NEGATIVE Protein Blood Gas Blood venous Specimen Source Arterial Blood 03/07/2019 1:40:00 Date Drawn PM Arterial Blood VENOUS LINE Gas Puncture Site Atilio Test N/A Venous Blood pH 7.182 *L Venous Blood 36.1 pCO2 (Temp Corrected) Venous Blood pO2 24.0 L (Temp Corrected) Venous Blood 13.2 L HCO3 Venous Blood 36.5 L Oxygen Saturation Venous Blood -14.1 L Base Excess Venous Blood 16.9 Total Hemoglobin Venous Blood 36.0 Oxyhemoglobin Venous Blood 0.5 Methemoglobin Carboxyhemoglobi 0.9 n Blood Gas 37.0 Temperature Blood Gas ROOM AIR Modality FiO2 21.0 Blood Gas PATRICIA Critical Value MIGUEL GUERRERO Read Back Blood Gas Notified Whom Blood Gas 03/07/2019 1:58:00 Notified Time PM Test 03/07/19 14:17 03/07/19 15:09 03/07/19 15:18 03/07/19 15:19 Bedside Glucose 321 H 283 H Blood Gas Blood venous Specimen Source Arterial Blood 03/07/2019 1:40:39 Date Drawn PM Arterial Blood VENOUS LINE Gas Puncture Site Atilio Test N/A Venous Blood pH 7.182 *L Venous Blood 36.1 pCO2 (Temp Corrected) Venous Blood pO2 24.0 L (Temp Corrected) Venous Blood 13.2 L HCO3 Venous Blood 36.5 L Oxygen Saturation Venous Blood -14.1 L Base Excess Venous Blood 16.9 Total Hemoglobin Venous Blood 36.0 Oxyhemoglobin Venous Blood 0.5 Methemoglobin Carboxyhemoglobi 0.9 n Blood Gas 37.0 Temperature Blood Gas ROOM AIR Modality FiO2 21.0 Blood Gas PATRICIA Critical Value MIGUEL GUERRERO Read Back Blood Gas Notified Whom Blood Gas 03/07/2019 1:58:12 Notified Time PM Sodium Level 139 Potassium Level 4.5 Chloride Level 105 Carbon Dioxide 15 L Level Anion Gap 19 #H Blood Urea 13 Nitrogen Creatinine 0.72 Est Glomerular > 60 Filtrat Rate mL/min Glucose Level 293 #H Calcium Level 9.4 Phosphorus Level 4.0 Magnesium Level 1.8 Test 03/07/19 16:26 03/07/19 17:09 03/07/19 17:18 03/07/19 17:19 Bedside Glucose 289 H 317 H Blood Gas Blood venous Specimen Source Arterial Blood 03/07/2019 5:15:54 Date Drawn PM Arterial Blood VENOUS LINE Gas Puncture Site Atilio Test N/A Venous Blood pH 7.244 L Venous Blood 30.0 L pCO2 (Temp Corrected) Venous Blood pO2 40.9 H (Temp Corrected) Venous Blood 12.7 L HCO3 Venous Blood 70.4 Oxygen Saturation Venous Blood -13.1 L Base Excess Venous Blood 16.6 Total Hemoglobin Venous Blood 69.4 Oxyhemoglobin Venous Blood 0.4 Methemoglobin Blood Gas A-a O2 72.9 Differential Carboxyhemoglobi 1.0 n Blood Gas 37.0 Temperature Blood Gas Actual 18 Respiration Rate Blood Gas ROOM AIR Modality FiO2 21.0 Blood Gas RDIX Notified Whom Blood Gas 03/07/2019 5:36:06 Notified Time PM Sodium Level 138 Potassium Level 4.8 Chloride Level 105 Carbon Dioxide 15 L Level Anion Gap 18 H Blood Urea 11 Nitrogen Creatinine 0.70 Est Glomerular > 60 Filtrat Rate mL/min Glucose Level 343 H Calcium Level 9.1 Phosphorus Level 3.8 Magnesium Level 1.9 Medications Medication Current Medications Potassium Chloride/Sodium Chloride 1,000 ml @ 0 mls/hr Q0M IV ; Start 03/07/19 at 13:09 Potassium Chloride/Dextrose/ Sod Cl 1,000 ml @ 0 mls/hr Q0M IV ; Start 03/07/19 at 13:09 Potassium Chloride/Sodium Chloride 1,000 ml @ 0 mls/hr Q0M IV Last administered on 03/07/19at 14:24; Admin Dose 250 MLS/HR; Start 03/07/19 at 13:09 Potassium Chloride/Dextrose/ Sod Cl 1,000 ml @ 0 mls/hr Q0M IV Last administered on 03/07/19at 15:41; Admin Dose 150 MLS/HR; Start 03/07/19 at 13:09 Sodium Chloride 1,000 ml @ 0 mls/hr Q0M IV ; Start 03/07/19 at 13:09 Dextrose/Sodium Chloride 1,000 ml @ 0 mls/hr Q0M IV ; Start 03/07/19 at 13:09 Insulin Human Regular 100 unit/ Sodium Chloride 101 ml @ 9.09 mls/hr ER DKA PROTOCOL IV Last administered on 03/07/19at 14:23; Admin Dose 9.09 MLS/HR; Start 03/07/19 at 13:30 Miscellaneous Information (* Miscellaneous Pharmacy Order) HYPOGLYCEMIA TREATMENT HYPOGLYCEM PROTOCOL PRN XX .HYPOGLYCEMIA PROTOCOL; Start 03/07/19 at 13:30 Dextrose (D50w Syringe) 50 ml Q15M PRN IV .DECREASED GLUCOSE; Start 03/07/19 at 13:30 Dextrose (D50w Syringe) 25 ml Q15M PRN IV .DECREASED GLUCOSE; Start 03/07/19 at 13:30 Acetaminophen (Tylenol Tab) 650 mg Q6H PRN PO PAIN LEVEL 1-3 OR FEVER; Start 03/07/19 at 14:00 Docusate Sodium (Colace) 100 mg Q12H PRN PO CONSTIPATION; Start 03/07/19 at 14:00 Magnesium Hydroxide (Milk Of Mag) 30 ml DAILY PRN PO CONSTIPATION; Start 03/07/19 at 14:00 Famotidine (Pepcid Iv) 20 mg Q12 IV ; Start 03/07/19 at 21:00 Enoxaparin Sodium (Lovenox) 40 mg DAILY SC ; Start 03/08/19 at 09:00 Ondansetron HCl (Zofran Inj) 4 mg Q4H PRN IV NAUSEA AND/OR VOMITING; Start 03/07/19 at 18:00 TYLER LEHMAN MD Mar 07, 2019 18:11
[2019-03-07] MEDS: INSULIN ASPART [NOVOLOG] 3 ML PEN SC SCH (21:00)
[2019-03-07] MEDS: FAMOTIDINE 20 MG INJ IV SCH (21:19)
[2019-03-07] MEDS: INSULIN GLARGINE [LANTus] (100 UNITS/ML) SYG SC SCH (21:30)
[2019-03-07] MEDS: ONDANSETRON 4 MG INJ IV PRN (21:45)
[2019-03-08] VITALS (24 sets, daily range): BP systolic 98–139; BP diastolic 53–100; PULSE 84–117; RESP 12–21
[2019-03-08] MEDS: NS + KCL 30 MEQ 1,000 ML IV SCH ×2 (00:46→09:11)
[2019-03-08] MEDS: ACCU-CHEK XX SCH (02:00)
[2019-03-08] MEDS ORDERED: NA BICARBONATE 8.4% 50 ML SYG IV ONE (02:00)
[2019-03-08] MEDS ORDERED: SOD CHLORIDE 0.9% 1,000 ML IV ONE (02:30)
[2019-03-08] MEDS: ONDANSETRON 4 MG INJ IV PRN ×5 (03:44→22:14)
[2019-03-08] MEDS ORDERED: SODIUM BICARBONATE (IV ADD) 150 MEQ in DEXTROSE 5% 1,000 ML IV SCH (06:00)
[2019-03-08] MEDS: INSULIN ASPART [NOVOLOG] 3 ML PEN SC SCH ×7 (07:35→21:00)
[2019-03-08] MEDS: FAMOTIDINE 20 MG INJ IV SCH ×2 (08:07→21:05)
[2019-03-08] MEDS: ENOXAPARIN 40 MG/0.4 ML SYG SC SCH (08:24)
[2019-03-08] MEDS: INSULIN REGULAR, HUMAN 100 UNIT in SOD CHLORIDE 0.9% 100 ML IV SCH ×4 (09:34→17:24)
[2019-03-08] MEDS: D10/0.45% NACL + KCL 30 MEQ 1,000 ML IV SCH ×2 (10:11→15:06)
--- NOTE | 2019-03-08 10:31 | PSY ---
Date/Time of Note Date/Time of Note DATE: 03/08/19 TIME: 10:30 Psychiatric Subjective Eval Consent Pt consented to telemedicine: No Subjective Evaluation Patient location: inpatient Chief Complaint: VOMITING X 10, TACHYPNEIC History of present illness Patient is a 23 yo M with PMH Diabetes type 1 admitted for vomiting . On a [id number] evaluation, patient denies hearing voices, denies suicidal ideation, states there is nothing to it, and that he may have reported visual hallucination because he was in a deep sleep. Patient admits seeing a psychiatrist in the past for anxiety but contracted for safety. Past psychiatric history History of anxiety Hospitalization: other Medical history Problems Medical Problems: (1) Diabetes mellitus type 1, uncontrolled, insulin dependent Status: Chronic (2) Diabetic ketoacidosis Status: Acute (3) DKA (diabetic ketoacidoses) Status: Acute (4) Metabolic acidosis, increased anion gap (IAG) Status: Acute (5) Patient's other noncompliance with medication regimen Status: Chronic Allergies: Coded Allergies: amoxicillin (Verified Allergy, Severe, 03/07/19) clavulanic acid (Verified Allergy, Severe, 03/07/19) Substance Abuse Substance use: other Substance abuse history: No Prior substance abuse treatmen: No Social History Marital status: other DPA/Conservatorship: No Psychiatric Objective Eval Review of Systems: Review of Systems: Not Applicable Physical Examination: Physical Examination: Not Applicable Energy: Other Interest: Other Mental Status Examination: Eye Contact: Fair Psychomotor Activity: Slow Behavior: Cooperative Speech: Soft AFFECT: Constricted On 72 hour hold: No Orientation: x3 Cognition: Alert Insight: Intact Judgement: Intact Attention Span: Intact Laboratory Results Laboratory Tests Test 03/07/19 12:30 03/07/19 12:36 03/07/19 13:20 03/07/19 13:45 Bedside Glucose 436 mg/dL White Blood 13.0 10^3/ul Count Red Blood Count 5.64 10^6/ul Hemoglobin 17.2 g/dl Hematocrit 50.7 % Mean 89.9 fl Corpuscular Volume Mean 30.5 pg Corpuscular Hemoglobin Mean 33.9 g/dl Corpuscular Hemoglobin Conc ent Red Cell 12.5 % Distribution Width Platelet Count 281 10^3/UL Mean Platelet 9.2 fl Volume Immature 0.600 % Granulocytes % Neutrophils % 82.2 % Lymphocytes % 12.0 % Monocytes % 4.7 % Eosinophils % 0.1 % Basophils % 0.4 % Nucleated Red 0.0 /100WBC Blood Cells % Immature 0.080 10^3/ul Granulocytes # Neutrophils # 10.7 10^3/ul Lymphocytes # 1.6 10^3/ul Monocytes # 0.6 10^3/ul Eosinophils # 0.0 10^3/ul Basophils # 0.1 10^3/ul Nucleated Red 0.0 10^3/ul Blood Cells # Sodium Level 139 mmol/L Potassium Level 5.2 mmol/L Chloride Level 98 mmol/L Carbon Dioxide 15 mmol/L Level Anion Gap 26 Blood Urea 14 mg/dl Nitrogen Creatinine 0.97 mg/dl Est Glomerular > 60 mL/min Filtrat Rate mL/min Glucose Level 478 mg/dl Hemoglobin A1c 12.7 % Calcium Level 10.5 mg/dl Total Bilirubin 1.1 mg/dl Direct 0.00 mg/dl Bilirubin Indirect 1.1 mg/dl Bilirubin Aspartate Amino 27 IU/L Transf (AST/SGO T) Alanine 29 IU/L Aminotransferas e (ALT/SGPT) Alkaline 133 IU/L Phosphatase Total Protein 8.4 g/dl Albumin 5.4 g/dl Globulin 3.00 g/dl Albumin/Globuli 1.80 n Ratio Urine Color STRAW Urine Clarity CLEAR Urine pH 5.0 Urine Specific 1.027 [place] Urine Ketones 2+ mg/dL Urine Nitrite NEGATIVE mg/dL Urine Bilirubin NEGATIVE mg/dL Urine NEGATIVE mg/dL Urobilinogen Urine Leukocyte NEGATIVE Brett/u Esterase l Urine NEGATIVE mg/dL Hemoglobin Urine Glucose 3+ mg/dL Urine Total NEGATIVE mg/dl Protein Blood Gas Blood venous Specimen Source Arterial Blood 03/07/2019 1:40: Date Drawn 00 PM Arterial Blood VENOUS LINE Gas Puncture Site Atilio Test N/A Venous Blood pH 7.182 Venous Blood 36.1 mmHG pCO2 (Temp Corrected ) Venous Blood 24.0 mmHG pO2 (Temp Corrected ) Venous Blood 13.2 mmol/L HCO3 Venous Blood 36.5 mmHG Oxygen Saturation Venous Blood -14.1 mmol/L Base Excess Venous Blood 16.9 g/dl Total Hemoglobin Venous Blood 36.0 % Oxyhemoglobin Venous Blood 0.5 % Methemoglobin Carboxyhemoglob 0.9 % in Blood Gas 37.0 C Temperature Blood Gas ROOM AIR Modality FiO2 21.0 % Blood Gas PATRICIA Critical Value MIGUEL RN Read Back Blood Gas Notified Whom Blood Gas 03/07/2019 1:58: Notified Time 00 PM Test 03/07/19 14:17 03/07/19 15:09 03/07/19 15:18 03/07/19 15:19 Bedside Glucose 321 mg/dL 283 mg/dL Blood Gas Blood venous Specimen Source Arterial Blood 03/07/2019 1:40: Date Drawn 39 PM Arterial Blood VENOUS LINE Gas Puncture Site Atilio Test N/A Venous Blood pH 7.182 Venous Blood 36.1 mmHG pCO2 (Temp Corrected ) Venous Blood 24.0 mmHG pO2 (Temp Corrected ) Venous Blood 13.2 mmol/L HCO3 Venous Blood 36.5 mmHG Oxygen Saturation Venous Blood -14.1 mmol/L Base Excess Venous Blood 16.9 g/dl Total Hemoglobin Venous Blood 36.0 % Oxyhemoglobin Venous Blood 0.5 % Methemoglobin Carboxyhemoglob 0.9 % in Blood Gas 37.0 C Temperature Blood Gas ROOM AIR Modality FiO2 21.0 % Blood Gas PATRICIA Critical Value MIGUEL GUERRERO Read Back Blood Gas Notified Whom Blood Gas 03/07/2019 1:58: Notified Time 12 PM Sodium Level 139 mmol/L Potassium Level 4.5 mmol/L Chloride Level 105 mmol/L Carbon Dioxide 15 mmol/L Level Anion Gap 19 Blood Urea 13 mg/dl Nitrogen Creatinine 0.72 mg/dl Est Glomerular > 60 mL/min Filtrat Rate mL/min Glucose Level 293 mg/dl Calcium Level 9.4 mg/dl Phosphorus 4.0 mg/dl Level Magnesium Level 1.8 mg/dl Test 03/07/19 16:26 03/07/19 17:09 03/07/19 17:18 03/07/19 17:19 Bedside Glucose 289 mg/dL 317 mg/dL Blood Gas Blood venous Specimen Source Arterial Blood 03/07/2019 5:15: Date Drawn 54 PM Arterial Blood VENOUS LINE Gas Puncture Site Atilio Test N/A Venous Blood pH 7.244 Venous Blood 30.0 mmHG pCO2 (Temp Corrected ) Venous Blood 40.9 mmHG pO2 (Temp Corrected ) Venous Blood 12.7 mmol/L HCO3 Venous Blood 70.4 mmHG Oxygen Saturation Venous Blood -13.1 mmol/L Base Excess Venous Blood 16.6 g/dl Total Hemoglobin Venous Blood 69.4 % Oxyhemoglobin Venous Blood 0.4 % Methemoglobin Blood Gas A-a 72.9 mmHg O2 Differential Carboxyhemoglob 1.0 % in Blood Gas 37.0 C Temperature Blood Gas 18 Actual Respiration Rat e Blood Gas ROOM AIR Modality FiO2 21.0 % Blood Gas RDIX Notified Whom Blood Gas 03/07/2019 5:36: Notified Time 06 PM Sodium Level 138 mmol/L Potassium Level 4.8 mmol/L Chloride Level 105 mmol/L Carbon Dioxide 15 mmol/L Level Anion Gap 18 Blood Urea 11 mg/dl Nitrogen Creatinine 0.70 mg/dl Est Glomerular > 60 mL/min Filtrat Rate mL/min Glucose Level 343 mg/dl Calcium Level 9.1 mg/dl Phosphorus 3.8 mg/dl Level Magnesium Level 1.9 mg/dl Test 03/07/19 18:49 03/07/19 20:08 03/07/19 21:10 03/07/19 21:21 Bedside Glucose 318 mg/dL 321 mg/dL 334 mg/dL Urine Color STRAW Urine Clarity CLEAR Urine pH 5.0 Urine Specific 1.023 [place] Urine Ketones 2+ mg/dL Urine Nitrite NEGATIVE mg/dL Urine Bilirubin NEGATIVE mg/dL Urine NEGATIVE mg/dL Urobilinogen Urine Leukocyte NEGATIVE Brett/u Esterase l Urine NEGATIVE mg/dL Hemoglobin Urine Glucose 3+ mg/dL Urine Total NEGATIVE mg/dl Protein Test 03/07/19 21:22 03/07/19 21:45 03/07/19 22:05 03/07/19 22:45 Sodium Level 137 mmol/L Potassium Level 5.0 mmol/L Chloride Level 107 mmol/L Carbon Dioxide 8 mmol/L Level Anion Gap 22 Blood Urea 9 mg/dl Nitrogen Creatinine 0.76 mg/dl Est Glomerular > 60 mL/min Filtrat Rate mL/min Glucose Level 382 mg/dl Calcium Level 9.4 mg/dl Phosphorus 3.7 mg/dl Level Magnesium Level 1.9 mg/dl Blood Gas BLMV Blood venous Specimen Source Arterial Blood 03/07/2019 9:20: 03/07/2019 10:41 Date Drawn 58 PM :31 PM Arterial Blood VENOUS LINE VENOUS LINE Gas Puncture Site Atilio Test N/A N/A Venous Blood 55.2 mmHG 59.7 mmHG pO2 (Temp Corrected ) Venous Blood 87.1 mmHG 87.6 mmHG Oxygen Saturation Venous Blood 17.3 g/dl 17.0 g/dl Total Hemoglobin Venous Blood 86.0 % 86.8 % Oxyhemoglobin Venous Blood 0.5 % 0.5 % Methemoglobin Carboxyhemoglob 0.8 % 0.4 % in Blood Gas 37.0 C 37.0 C Temperature Blood Gas 20 20 Actual Respiration Rat e Blood Gas ROOM AIR ROOM AIR Modality FiO2 21.0 % 21.0 % Blood Gas LT ANNE-MARIE Dillard RCP Notified Whom Blood Gas 03/07/2019 9:50: 03/07/2019 10:53 Notified Time 08 PM :59 PM Bedside Glucose 379 mg/dL Venous Blood pH 7.150 Venous Blood 22.8 mmHG pCO2 (Temp Corrected ) Venous Blood 7.8 mmol/L HCO3 Venous Blood -19.1 mmol/L Base Excess Blood Gas A-a 62.7 mmHg O2 Differential Blood Gas TYLORN,J.R.N. Critical Value Read Back Test 03/07/19 23:12 03/08/19 00:09 03/08/19 01:09 03/08/19 01:13 Bedside Glucose 403 mg/dL 372 mg/dL 388 mg/dL Blood Gas Blood venous Specimen Source Arterial Blood 03/08/2019 1:12: Date Drawn 17 AM Arterial Blood VENOUS LINE Gas Puncture Site Atilio Test N/A Venous Blood pH 7.089 Venous Blood 16.4 mmHG pCO2 (Temp Corrected ) Venous Blood 72.9 mmHG pO2 (Temp Corrected ) Venous Blood 4.9 mmol/L HCO3 Venous Blood 91.1 mmHG Oxygen Saturation Venous Blood -22.8 mmol/L Base Excess Venous Blood 17.3 g/dl Total Hemoglobin Venous Blood 90.5 % Oxyhemoglobin Venous Blood 0.5 % Methemoglobin Blood Gas A-a 57.2 mmHg O2 Differential Carboxyhemoglob 0.2 % in Blood Gas 37.0 C Temperature Blood Gas 18 Actual Respiration Rat e Blood Gas ROOM AIR Modality FiO2 21.0 % Blood Gas AYDINSAN,J.R.N. Critical Value Read Back Blood Gas CHRISTINA CAMILO Notified Whom Blood Gas 03/08/2019 1:24: Notified Time 35 AM Test 03/08/19 01:16 03/08/19 02:08 03/08/19 03:17 03/08/19 04:00 Sodium Level 139 mmol/L Potassium Level 5.7 mmol/L Chloride Level 109 mmol/L Carbon Dioxide < 5 mmol/L Level Anion Gap 25 Blood Urea 10 mg/dl Nitrogen Creatinine 0.85 mg/dl Est Glomerular > 60 mL/min Filtrat Rate mL/min Glucose Level 407 mg/dl Calcium Level 9.5 mg/dl Phosphorus 4.2 mg/dl Level Magnesium Level 1.8 mg/dl Bedside Glucose 382 mg/dL 362 mg/dL 330 mg/dL Test 03/08/19 05:09 03/08/19 05:11 03/08/19 06:24 03/08/19 07:22 Blood Gas Blood venous Specimen Source Arterial Blood 03/08/2019 5:09:0 Date Drawn 2 AM Arterial Blood VENOUS LINE Gas Puncture Site Atilio Test N/A Venous Blood pH 7.024 Venous Blood 17.1 mmHG pCO2 (Temp Corrected ) Venous Blood 50.0 mmHG pO2 (Temp Corrected ) Venous Blood 4.4 mmol/L HCO3 Venous Blood 79.2 mmHG Oxygen Saturation Venous Blood -24.8 mmol/L Base Excess Venous Blood 16.8 g/dl Total Hemoglobin Venous Blood 78.4 % Oxyhemoglobin Venous Blood 0.5 % Methemoglobin Blood Gas A-a 79.3 mmHg O2 Differential Carboxyhemoglob 0.5 % in Blood Gas 37.0 C Temperature Blood Gas 18 Actual Respiration Rat e Blood Gas ROOM AIR Modality FiO2 21.0 % Blood Gas CITLALI,J. R.N. Critical Value Read Back Blood Gas CHRISTINA CAMILO Notified Whom Blood Gas 03/08/2019 5:20:4 Notified Time 7 AM Bedside Glucose 286 mg/dL 217 mg/dL 207 mg/dL Sodium Level 146 mmol/L Potassium Level 4.8 mmol/L Chloride Level 115 mmol/L Carbon Dioxide 5 mmol/L Level Anion Gap 26 Blood Urea 11 mg/dl Nitrogen Creatinine 0.99 mg/dl Est Glomerular > 60 mL/min Filtrat Rate mL/min Glucose Level 318 mg/dl Calcium Level 9.2 mg/dl Phosphorus 4.7 mg/dl Level Magnesium Level 2.1 mg/dl Test 03/08/19 08:07 03/08/19 09:02 03/08/19 09:09 03/08/19 09:36 Bedside Glucose 203 mg/dL 188 mg/dL Blood Gas Blood venous Specimen Source Arterial Blood 03/08/2019 9:10: Date Drawn 55 AM Arterial Blood VENOUS LINE Gas Puncture Site Atilio Test N/A Venous Blood pH 7.143 Venous Blood 25.7 mmHG pCO2 (Temp Corrected ) Venous Blood 42.8 mmHG pO2 (Temp Corrected ) Venous Blood 8.6 mmol/L HCO3 Venous Blood 78.1 mmHG Oxygen Saturation Venous Blood -18.7 mmol/L Base Excess Venous Blood 15.7 g/dl Total Hemoglobin Venous Blood 77.6 % Oxyhemoglobin Venous Blood 0.4 % Methemoglobin Carboxyhemoglob 0.2 % in Blood Gas 37.0 C Temperature Blood Gas ROOM AIR Modality FiO2 21.0 % Blood Gas TROY GUERRERO Critical Value Read Back Blood Gas CW Notified Whom Blood Gas 03/08/2019 9:25: Notified Time 34 AM Sodium Level 145 mmol/L Potassium Level 4.3 mmol/L Chloride Level 117 mmol/L Carbon Dioxide 10 mmol/L Level Anion Gap 18 Blood Urea 10 mg/dl Nitrogen Creatinine 0.87 mg/dl Est Glomerular > 60 mL/min Filtrat Rate mL/min Glucose Level 205 mg/dl Calcium Level 8.9 mg/dl Phosphorus 2.8 mg/dl Level Magnesium Level 2.0 mg/dl Test 03/08/19 10:06 Bedside Glucose 184 mg/dL Assessment and Plan Assessment/Diagnosis Diagnosis Anxiety disorder NOS Recommendation/Plan Multiple antipsychotics: No Discharge Disposition: Other Legal Status: Voluntary (Patient does not meet criteria for 5150 hold) ALEXY HERBERT NP Mar 08, 2019 10:31
--- NOTE | 2019-03-08 13:48 | CONS ---
Assessment/Plan Assessment/Plan Problems: (1) Diabetic ketoacidosis Status: Acute Comment: Despite insulin drip overnight pt. w/ dramatic worsening of DKA w/ lower pH, lower CO2, opening of anion gap, elevation of K. Labs appear as if pt. was not getting his insulin although per nursing he was. Possible there was a problem w/ the bag of insulin sent up by pharmacy. Pt. placed on NaHCO3 when his pH was 7. Potassium has remained normal. Should be safe at this point to d/c NaHCO3. Cont. DKA protocol until resolved. Qualifiers: Diabetes mellitus type: type 1 Diabetes mellitus complication detail: without coma Qualified Codes: E10.10 - Type 1 diabetes mellitus with ketoacidosis without coma (2) Diabetes mellitus type 1, uncontrolled, insulin dependent Status: Chronic Comment: Started lantus 30 units qhs last night. Will start Novolog 14 qac once diet restarted. Monitor glucose and adjust insulin as per levels. Consultation Date/Type/Reason Admit Date/Time Mar 07, 2019 at 13:25 Initial Consult Date 03/07/19 Type of Consult Endocrinology Reason for Consultation DKA and T1DM OOC Requesting Provider: DELFINA MEJIA MD Date/Time of Note DATE: 03/08/19 TIME: 13:44 24 HR Interval Summary Constitutional: no complaints, improved (feels much better today) Detailed Summary Respiratory: no complaints Cardiovascular: no complaints Gastrointestinal: no complaints; No pain, No decreased appetite (feels hungry), No nausea, No vomiting Genitourinary: no complaints Musculoskeletal: no complaints Neurologic: no complaints Exam/Review of Systems Exam Vitals VS - Last 72 Hours, by Label Date Temp Pulse Resp B/P (MAP) Pulse Ox O2 O2 Flow FiO2 Time Delivery Rate 03/08/19 94 12 105/77 100 Room Air 13:00 (86) 03/08/19 98.6 96 15 111/77 100 Room Air 12:00 (88) 03/08/19 102 16 114/71 100 Room Air 11:00 (85) 03/08/19 104 17 106/67 100 Room Air 10:00 (80) 03/08/19 100 16 124/70 100 Room Air 09:00 (88) 03/08/19 98.5 113 17 113/70 100 Room Air 08:00 (84) 03/08/19 109 17 120/76 100 Room Air 07:00 (91) 03/08/19 107 19 123/78 100 Room Air 06:00 (93) 03/08/19 116 17 122/100 100 Room Air 05:00 (107) 03/08/19 97.8 112 18 110/69 100 Room Air 04:00 (83) 03/08/19 107 20 105/57 100 Room Air 03:00 (73) 03/08/19 107 19 117/68 100 Room Air 02:00 (84) 03/08/19 116 19 137/53 100 Room Air 01:00 (81) 03/08/19 97.8 117 18 139/66 100 Room Air 00:00 (90) 03/07/19 111 18 134/59 100 Room Air 23:00 (84) 03/07/19 114 13 124/53 100 Room Air 22:00 (76) 03/07/19 113 17 132/78 98 Room Air 21:00 (96) 03/07/19 107 18 116/71 97 Room Air 20:00 (86) 03/07/19 97.8 101 13 131/72 100 Room Air 19:00 (91) 03/07/19 106 19 131/90 100 Room Air 18:00 (104) 03/07/19 99 17 111/75 98 Room Air 17:00 (87) 03/07/19 98.5 86 15 109/69 100 Room Air 16:00 (82) 03/07/19 14 105/73 98 Room Air 15:00 (84) 03/07/19 96 18 122/105 99 Room Air 14:30 (111) 03/07/19 100 18 131/84 99 Room Air 13:20 (100) 03/07/19 97.8 114 24 135/81 99 12:21 (99) Vital Signs Date Temp Pulse Resp B/P (MAP) Pulse Ox O2 O2 Flow FiO2 Time Delivery Rate 03/08/19 94 12 105/77 100 Room Air 13:00 (86) 03/08/19 98.6 12:00 Intake and Output 03/07/19 03/07/19 03/08/19 1515:00 23:00 07:00 IntakeIntake Total 259.09 ml 2122.72 ml 2683.53 ml OutputOutput Total 2350 ml 2900 ml BalanceBalance 259.09 ml -227.28 ml -216.47 ml Constitutional: alert, oriented, well developed Psych: no complaints, nl mood/affect Respiratory: clear to auscultation, normal air movement Cardiovascular: regular rate and rhythm, nl pulses; No edema, No murmurs/extra sounds, No rub Gastrointestinal: soft, nl liver, spleen, non-tender, bowel sounds; No mass, No rebound or guarding Musculoskeletal: nl extremities to inspection Extremities: normal pulses; No cyanosis, No clubbing, No edema Neurological: LAP WELDER II-XII intact, nl mental status, nl speech, nl strength Additional Comments Bedside Glucose - 72 Hours Test 03/07/19 12:30 03/07/19 14:17 03/07/19 15:18 03/07/19 16:26 Bedside 436 321 283 289 Glucose mg/dL (70-220) mg/dL (70-220) mg/dL (70-220) mg/dL (70-220) *H H H H Test 03/07/19 17:18 03/07/19 18:49 03/07/19 20:08 03/07/19 21:21 Bedside 317 318 321 334 Glucose mg/dL (70-220) mg/dL (70-220) mg/dL (70-220) mg/dL (70-220) H H H H Test 03/07/19 22:05 03/07/19 23:12 03/08/19 00:09 03/08/19 01:13 Bedside 379 403 372 388 Glucose mg/dL (70-220) mg/dL (70-220) mg/dL (70-220) mg/dL (70-220) H *H H H Test 03/08/19 02:08 03/08/19 03:17 03/08/19 04:00 03/08/19 05:09 Bedside 382 362 330 286 Glucose mg/dL (70-220) mg/dL (70-220) mg/dL (70-220) mg/dL (70-220) H H H H Test 03/08/19 06:24 03/08/19 07:22 03/08/19 08:07 03/08/19 09:02 Bedside 217 207 203 188 Glucose mg/dL (70-220) mg/dL (70-220) mg/dL (70-220) mg/dL (70-220) Test 03/08/19 10:06 03/08/19 11:04 03/08/19 11:59 03/08/19 13:04 Bedside 184 236 228 276 Glucose mg/dL (70-220) mg/dL (70-220) mg/dL (70-220) mg/dL (70-220) H H H Results Result Diagram: 03/07/19 1236 03/08/19 1312 Results 24hrs Laboratory Tests Test 03/07/19 13:45 03/07/19 14:17 03/07/19 15:09 03/07/19 15:18 Blood Gas Blood venous Blood venous Specimen Source Arterial Blood 03/07/2019 1:40:0 03/07/2019 1:40: Date Drawn 0 PM 39 PM Arterial Blood VENOUS LINE VENOUS LINE Gas Puncture Site Atilio Test N/A N/A Venous Blood pH 7.182 *L 7.182 *L Venous Blood 36.1 36.1 pCO2 (Temp Corrected ) Venous Blood 24.0 L 24.0 L pO2 (Temp Corrected ) Venous Blood 13.2 L 13.2 L HCO3 Venous Blood 36.5 L 36.5 L Oxygen Saturation Venous Blood -14.1 L -14.1 L Base Excess Venous Blood 16.9 16.9 Total Hemoglobin Venous Blood 36.0 36.0 Oxyhemoglobin Venous Blood 0.5 0.5 Methemoglobin Carboxyhemoglob 0.9 0.9 in Blood Gas 37.0 37.0 Temperature Blood Gas ROOM AIR ROOM AIR Modality FiO2 21.0 21.0 Blood Gas PATRICIA PATRICIA Critical Value MIGUEL RIVERA RN Read Back Blood Gas [facility] Notified Whom Blood Gas 03/07/2019 1:58:0 03/07/2019 1:58: Notified Time 0 PM 12 PM Bedside Glucose 321 H 283 H Test 03/07/19 15:19 03/07/19 16:26 03/07/19 17:09 03/07/19 17:18 Sodium Level 139 Potassium Level 4.5 Chloride Level 105 Carbon Dioxide 15 L Level Anion Gap 19 #H Blood Urea 13 Nitrogen Creatinine 0.72 Est Glomerular > 60 Filtrat Rate mL/min Glucose Level 293 #H Calcium Level 9.4 Phosphorus 4.0 Level Magnesium Level 1.8 Bedside Glucose 289 H 317 H Blood Gas Blood venous Specimen Source Arterial Blood 03/07/2019 5:15: Date Drawn 54 PM Arterial Blood VENOUS LINE Gas Puncture Site Atilio Test N/A Venous Blood pH 7.244 L Venous Blood 30.0 L pCO2 (Temp Corrected ) Venous Blood 40.9 H pO2 (Temp Corrected ) Venous Blood 12.7 L HCO3 Venous Blood 70.4 Oxygen Saturation Venous Blood -13.1 L Base Excess Venous Blood 16.6 Total Hemoglobin Venous Blood 69.4 Oxyhemoglobin Venous Blood 0.4 Methemoglobin Blood Gas A-a 72.9 O2 Differential Carboxyhemoglob 1.0 in Blood Gas 37.0 Temperature Blood Gas 18 Actual Respiration Rat e Blood Gas ROOM AIR Modality FiO2 21.0 Blood Gas RDIX Notified Whom Blood Gas 03/07/2019 5:36: Notified Time 06 PM Test 03/07/19 17:19 03/07/19 18:49 03/07/19 20:08 03/07/19 21:10 Sodium Level 138 Potassium Level 4.8 Chloride Level 105 Carbon Dioxide 15 L Level Anion Gap 18 H Blood Urea 11 Nitrogen Creatinine 0.70 Est Glomerular > 60 Filtrat Rate mL/min Glucose Level 343 H Calcium Level 9.1 Phosphorus 3.8 Level Magnesium Level 1.9 Bedside Glucose 318 H 321 H Urine Color STRAW Urine Clarity CLEAR Urine pH 5.0 Urine Specific 1.023 [place] Urine Ketones 2+ H Urine Nitrite NEGATIVE Urine Bilirubin NEGATIVE Urine NEGATIVE Urobilinogen Urine Leukocyte NEGATIVE Esterase Urine NEGATIVE Hemoglobin Urine Glucose 3+ H Urine Total NEGATIVE Protein Test 03/07/19 21:21 03/07/19 21:22 03/07/19 21:45 03/07/19 22:05 Bedside Glucose 334 H 379 H Sodium Level 137 Potassium Level 5.0 Chloride Level 107 Carbon Dioxide 8 #*L Level Anion Gap 22 H Blood Urea 9 Nitrogen Creatinine 0.76 Est Glomerular > 60 Filtrat Rate mL/min Glucose Level 382 H Calcium Level 9.4 Phosphorus 3.7 Level Magnesium Level 1.9 Blood Gas BLMV Specimen Source Arterial Blood 03/07/2019 9:20: Date Drawn 58 PM Arterial Blood VENOUS LINE Gas Puncture Site Atilio Test N/A Venous Blood 55.2 H pO2 (Temp Corrected ) Venous Blood 87.1 H Oxygen Saturation Venous Blood 17.3 Total Hemoglobin Venous Blood 86.0 Oxyhemoglobin Venous Blood 0.5 Methemoglobin Carboxyhemoglob 0.8 in Blood Gas 37.0 Temperature Blood Gas 20 Actual Respiration Rat e Blood Gas ROOM AIR Modality FiO2 21.0 Blood Gas LT Notified Whom Blood Gas 03/07/2019 9:50: Notified Time 08 PM Test 03/07/19 22:45 03/07/19 23:12 03/08/19 00:09 03/08/19 01:09 Blood Gas Blood venous Blood venous Specimen Source Arterial Blood 03/07/2019 10:41: 03/08/2019 1:12: Date Drawn 31 PM 17 AM Arterial Blood VENOUS LINE VENOUS LINE Gas Puncture Site Atilio Test N/A N/A Venous Blood pH 7.150 *L 7.089 *L Venous Blood 22.8 L 16.4 L pCO2 (Temp Corrected ) Venous Blood 59.7 H 72.9 H pO2 (Temp Corrected ) Venous Blood 7.8 L 4.9 L HCO3 Venous Blood 87.6 H 91.1 H Oxygen Saturation Venous Blood -19.1 L -22.8 L Base Excess Venous Blood 17.0 17.3 Total Hemoglobin Venous Blood 86.8 90.5 Oxyhemoglobin Venous Blood 0.5 0.5 Methemoglobin Blood Gas A-a 62.7 57.2 O2 Differential Carboxyhemoglob 0.4 0.2 in Blood Gas 37.0 37.0 Temperature Blood Gas 20 18 Actual Respiration Rat e Blood Gas ROOM AIR ROOM AIR Modality FiO2 21.0 21.0 Blood Gas Marina GODWINR.[place]. Marina GODWINRElsa Critical Value Read Back Blood Gas ANNE-MARIE Dillard RCP W.CHRISTINA XIE Notified Whom Blood Gas 03/07/2019 10:53: 03/08/2019 1:24: Notified Time 59 PM 35 AM Bedside Glucose 403 *H 372 H Test 03/08/19 01:13 03/08/19 01:16 03/08/19 02:08 03/08/19 03:17 Bedside Glucose 388 H 382 H 362 H Sodium Level 139 Potassium Level 5.7 H Chloride Level 109 Carbon Dioxide < 5 *L Level Anion Gap 25 H Blood Urea 10 Nitrogen Creatinine 0.85 Est Glomerular > 60 Filtrat Rate mL/min Glucose Level 407 *H Calcium Level 9.5 Phosphorus 4.2 Level Magnesium Level 1.8 Test 03/08/19 04:00 03/08/19 05:09 03/08/19 05:11 03/08/19 06:24 Bedside Glucose 330 H 286 H 217 Blood Gas Blood venous Specimen Source Arterial Blood 03/08/2019 5:09: Date Drawn 02 AM Arterial Blood VENOUS LINE Gas Puncture Site Atilio Test N/A Venous Blood pH 7.024 *L Venous Blood 17.1 L pCO2 (Temp Corrected ) Venous Blood 50.0 H pO2 (Temp Corrected ) Venous Blood 4.4 L HCO3 Venous Blood 79.2 H Oxygen Saturation Venous Blood -24.8 L Base Excess Venous Blood 16.8 Total Hemoglobin Venous Blood 78.4 Oxyhemoglobin Venous Blood 0.5 Methemoglobin Blood Gas A-a 79.3 O2 Differential Carboxyhemoglob 0.5 in Blood Gas 37.0 Temperature Blood Gas 18 Actual Respiration Rat e Blood Gas ROOM AIR Modality FiO2 21.0 Blood Gas Marina GODWIN Critical Value R.N. Read Back Blood Gas CHRISTINA CAMILO Notified Whom Blood Gas 03/08/2019 5:20: Notified Time 47 AM Sodium Level 146 H Potassium Level 4.8 Chloride Level 115 H Carbon Dioxide 5 *L Level Anion Gap 26 H Blood Urea 11 Nitrogen Creatinine 0.99 Est Glomerular > 60 Filtrat Rate mL/min Glucose Level 318 H Calcium Level 9.2 Phosphorus 4.7 Level Magnesium Level 2.1 Test 03/08/19 07:22 03/08/19 08:07 03/08/19 09:02 03/08/19 09:09 Bedside Glucose 207 203 188 Blood Gas Blood venous Specimen Source Arterial Blood 03/08/2019 9:10: Date Drawn 55 AM Arterial Blood VENOUS LINE Gas Puncture Site Atilio Test N/A Venous Blood pH 7.143 *L Venous Blood 25.7 L pCO2 (Temp Corrected ) Venous Blood 42.8 H pO2 (Temp Corrected ) Venous Blood 8.6 L HCO3 Venous Blood 78.1 H Oxygen Saturation Venous Blood -18.7 L Base Excess Venous Blood 15.7 Total Hemoglobin Venous Blood 77.6 Oxyhemoglobin Venous Blood 0.4 Methemoglobin Carboxyhemoglob 0.2 in Blood Gas 37.0 Temperature Blood Gas ROOM AIR Modality FiO2 21.0 Blood Gas TROY GUERRERO Critical Value Read Back Blood Gas CW Notified Whom Blood Gas 03/08/2019 9:25: Notified Time 34 AM Test 03/08/19 09:36 03/08/19 10:06 03/08/19 11:04 03/08/19 11:59 Sodium Level 145 H Potassium Level 4.3 Chloride Level 117 H Carbon Dioxide 10 #L Level Anion Gap 18 #H Blood Urea 10 Nitrogen Creatinine 0.87 Est Glomerular > 60 Filtrat Rate mL/min Glucose Level 205 # Calcium Level 8.9 Phosphorus 2.8 Level Magnesium Level 2.0 Bedside Glucose 184 236 H 228 H Test 03/08/19 13:04 03/08/19 13:09 03/08/19 13:12 Bedside Glucose 276 H Blood Gas Blood venous Specimen Source Arterial Blood 03/08/2019 1:00: Date Drawn 39 PM Arterial Blood VENOUS LINE Gas Puncture Site Atilio Test N/A Venous Blood pH 7.249 L Venous Blood 26.4 L pCO2 (Temp Corrected ) Venous Blood 41.7 H pO2 (Temp Corrected ) Venous Blood 11.3 L HCO3 Venous Blood 81.3 H Oxygen Saturation Venous Blood -14.2 L Base Excess Venous Blood 14.7 Total Hemoglobin Venous Blood 80.7 Oxyhemoglobin Venous Blood 0.4 Methemoglobin Carboxyhemoglob 0.3 in Blood Gas 37.0 Temperature Blood Gas ROOM AIR Modality FiO2 21.0 Blood Gas CW Notified Whom Blood Gas 03/08/2019 1:19: Notified Time 59 PM Sodium Level 144 Potassium Level 4.4 Chloride Level 115 H Carbon Dioxide 14 L Level Anion Gap 15 H Blood Urea 9 Nitrogen Creatinine 0.77 Est Glomerular > 60 Filtrat Rate mL/min Glucose Level 241 H Calcium Level 8.9 Phosphorus 2.3 L Level Magnesium Level 2.0 Medications Medication Current Medications Potassium Chloride/Sodium Chloride 1,000 ml @ 0 mls/hr Q0M IV ; Start 03/07/19 at 13:09 Potassium Chloride/Dextrose/ Sod Cl 1,000 ml @ 0 mls/hr Q0M IV ; Start 03/07/19 at 13:09 Potassium Chloride/Sodium Chloride 1,000 ml @ 0 mls/hr Q0M IV Last administ ered on 03/08/19at 09:11; Admin Dose 200 MLS/HR; Start 03/07/19 at 13:09 Potassium Chloride/Dextrose/ Sod Cl 1,000 ml @ 0 mls/hr Q0M IV Last administered on 03/08/19at 10:11; Admin Dose 250 MLS/HR; Start 03/07/19 at 13:09 Sodium Chloride 1,000 ml @ 0 mls/hr Q0M IV Last administered on 03/08/19at 05:56; Admin Dose 400 MLS/HR; Start 03/07/19 at 13:09 Dextrose/Sodium Chloride 1,000 ml @ 0 mls/hr Q0M IV ; Start 03/07/19 at 13:09 Insulin Human Regular 100 unit/ Sodium Chloride 101 ml @ 9.09 mls/hr ER DKA PROTOCOL IV Last administered on 03/08/19at 09:34; Admin Dose 11 MLS/HR; Start 03/07/19 at 13:30 Miscellaneous Information (* Miscellaneous Pharmacy Order) HYPOGLYCEMIA TREATMENT HYPOGLYCEM PROTOCOL PRN XX .HYPOGLYCEMIA PROTOCOL; Start 03/07/19 at 13:30 Dextrose (D50w Syringe) 50 ml Q15M PRN IV .DECREASED GLUCOSE; Start 03/07/19 at 13:30 Dextrose (D50w Syringe) 25 ml Q15M PRN IV .DECREASED GLUCOSE; Start 03/07/19 at 13:30 Acetaminophen (Tylenol Tab) 650 mg Q6H PRN PO PAIN LEVEL 1-3 OR FEVER; Start 03/07/19 at 14:00 Docusate Sodium (Colace) 100 mg Q12H PRN PO CONSTIPATION; Start 03/07/19 at 14:00 Magnesium Hydroxide (Milk Of Mag) 30 ml DAILY PRN PO CONSTIPATION; Start 03/07/19 at 14:00 Famotidine (Pepcid Iv) 20 mg Q12 IV Last administered on 03/08/19at 08:07; Admin Dose 20 MG; Start 03/07/19 at 21:00 Enoxaparin Sodium (Lovenox) 40 mg DAILY SC Last administered on 03/08/19at 08:24; Admin Dose 40 MG; Start 03/08/19 at 09:00 Ondansetron HCl (Zofran Inj) 4 mg Q4H PRN IV NAUSEA AND/OR VOMITING Last administered on 03/08/19at 13:14; Admin Dose 4 MG; Start 03/07/19 at 18:00 Diagnostic Test (Pha) (Accu-Chek) 1 ea 02 XX ; Start 03/08/19 at 02:00 Insulin Glargine (Lantus) 30 units DAILY@2000 SC Last administered on 03/07/19at 21:30; Admin Dose 30 UNITS; Start 03/07/19 at 20:00 Insulin Aspart (Novolog Insulin Pen) 14 unit WITH MEALS SC ; Start 03/08/19 at 07:35; Status UNV Insulin Aspart (Novolog Insulin Pen) NOVOLOG *MODERATE* ALGORITHM WITH MEALS BEDTIME SC ; Start 03/07/19 at 21:00; Status UNV Sodium Bicarbonate 150 meq/Dextrose 1,150 ml @ 50 mls/hr Q23H IV Last administered on 03/08/19at 06:48; Admin Dose 50 MLS/HR; Start 03/08/19 at 06:00 TYLER LEHMAN MD Mar 08, 2019 13:48
--- NOTE | 2019-03-08 14:05 | PN ---
Date/Time of Note Date/Time of Note DATE: 03/08/19 TIME: 14:03 Assessment/Plan VTE Prophylaxis Risk score (from Nsg)>0 risk: 1 SCD applied (from Ns): No SCD contraindicated: low risk/ambulating Pharmacological prophylaxis: LMWH Lines/Catheters IV Catheter Type (from Nrsg): Peripheral IV Urinary Cath still in place: No Assessment/Plan Hospital Course Assessment plan 1. DKA, mod stable continue insulin/fluids etiology? etio: No evidence of fever/ infection. Dietary indiscretion? 2. Chronic type DMI 3. Nonadherence to dietary therapy? 4. Chronic generalized anxiety disorder 5. Tobacco abuse status post counseling offered patch Subjective: Events noted no fever Objective: Vital signs stable sinus tach Physical exam No pallor Regular Clear Bs + nt nd no RRG No edema Result Diagram: 03/07/19 1236 03/08/19 1312 Results 24hrs Laboratory Tests Test 03/07/19 14:17 03/07/19 15:09 03/07/19 15:18 03/07/19 15:19 Bedside Glucose 321 H 283 H Blood Gas Blood venous Specimen Source Arterial Blood 03/07/2019 1:40: Date Drawn 39 PM Arterial Blood VENOUS LINE Gas Puncture Site Atilio Test N/A Venous Blood pH 7.182 *L Venous Blood 36.1 pCO2 (Temp Corrected ) Venous Blood 24.0 L pO2 (Temp Corrected ) Venous Blood 13.2 L HCO3 Venous Blood 36.5 L Oxygen Saturation Venous Blood -14.1 L Base Excess Venous Blood 16.9 Total Hemoglobin Venous Blood 36.0 Oxyhemoglobin Venous Blood 0.5 Methemoglobin Carboxyhemoglob 0.9 in Blood Gas 37.0 Temperature Blood Gas ROOM AIR Modality FiO2 21.0 Blood Gas PATRCIIA Critical Value MIGUEL RN Read Back Blood Gas Notified Whom Blood Gas 03/07/2019 1:58: Notified Time 12 PM Sodium Level 139 Potassium Level 4.5 Chloride Level 105 Carbon Dioxide 15 L Level Anion Gap 19 #H Blood Urea 13 Nitrogen Creatinine 0.72 Est Glomerular > 60 Filtrat Rate mL/min Glucose Level 293 #H Calcium Level 9.4 Phosphorus 4.0 Level Magnesium Level 1.8 Test 03/07/19 16:26 03/07/19 17:09 03/07/19 17:18 03/07/19 17:19 Bedside Glucose 289 H 317 H Blood Gas Blood venous Specimen Source Arterial Blood 03/07/2019 5:15: Date Drawn 54 PM Arterial Blood VENOUS LINE Gas Puncture Site Atilio Test N/A Venous Blood pH 7.244 L Venous Blood 30.0 L pCO2 (Temp Corrected ) Venous Blood 40.9 H pO2 (Temp Corrected ) Venous Blood 12.7 L HCO3 Venous Blood 70.4 Oxygen Saturation Venous Blood -13.1 L Base Excess Venous Blood 16.6 Total Hemoglobin Venous Blood 69.4 Oxyhemoglobin Venous Blood 0.4 Methemoglobin Blood Gas A-a 72.9 O2 Differential Carboxyhemoglob 1.0 in Blood Gas 37.0 Temperature Blood Gas 18 Actual Respiration Rat e Blood Gas ROOM AIR Modality FiO2 21.0 Blood Gas RDIX Notified Whom Blood Gas 03/07/2019 5:36: Notified Time 06 PM Sodium Level 138 Potassium Level 4.8 Chloride Level 105 Carbon Dioxide 15 L Level Anion Gap 18 H Blood Urea 11 Nitrogen Creatinine 0.70 Est Glomerular > 60 Filtrat Rate mL/min Glucose Level 343 H Calcium Level 9.1 Phosphorus 3.8 Level Magnesium Level 1.9 Test 03/07/19 18:49 03/07/19 20:08 03/07/19 21:10 03/07/19 21:21 Bedside Glucose 318 H 321 H 334 H Urine Color STRAW Urine Clarity CLEAR Urine pH 5.0 Urine Specific 1.023 [place] Urine Ketones 2+ H Urine Nitrite NEGATIVE Urine Bilirubin NEGATIVE Urine NEGATIVE Urobilinogen Urine Leukocyte NEGATIVE Esterase Urine NEGATIVE Hemoglobin Urine Glucose 3+ H Urine Total NEGATIVE Protein Test 03/07/19 21:22 03/07/19 21:45 03/07/19 22:05 03/07/19 22:45 Sodium Level 137 Potassium Level 5.0 Chloride Level 107 Carbon Dioxide 8 #*L Level Anion Gap 22 H Blood Urea 9 Nitrogen Creatinine 0.76 Est Glomerular > 60 Filtrat Rate mL/min Glucose Level 382 H Calcium Level 9.4 Phosphorus 3.7 Level Magnesium Level 1.9 Blood Gas BLMV Blood venous Specimen Source Arterial Blood 03/07/2019 9:20: 03/07/2019 10:41 Date Drawn 58 PM :31 PM Arterial Blood VENOUS LINE VENOUS LINE Gas Puncture Site Atilio Test N/A N/A Venous Blood 55.2 H 59.7 H pO2 (Temp Corrected ) Venous Blood 87.1 H 87.6 H Oxygen Saturation Venous Blood 17.3 17.0 Total Hemoglobin Venous Blood 86.0 86.8 Oxyhemoglobin Venous Blood 0.5 0.5 Methemoglobin Carboxyhemoglob 0.8 0.4 in Blood Gas 37.0 37.0 Temperature Blood Gas 20 20 Actual Respiration Rat e Blood Gas ROOM AIR ROOM AIR Modality FiO2 21.0 21.0 Blood Gas LT ANNE-MARIE Dillard RCP Notified Whom Blood Gas 03/07/2019 9:50: 03/07/2019 10:53 Notified Time 08 PM :59 PM Bedside Glucose 379 H Venous Blood pH 7.150 *L Venous Blood 22.8 L pCO2 (Temp Corrected ) Venous Blood 7.8 L HCO3 Venous Blood -19.1 L Base Excess Blood Gas A-a 62.7 O2 Differential Blood Gas TYLORN,J.R.N. Critical Value Read Back Test 03/07/19 23:12 03/08/19 00:09 03/08/19 01:09 03/08/19 01:13 Bedside Glucose 403 *H 372 H 388 H Blood Gas Blood venous Specimen Source Arterial Blood 03/08/2019 1:12: Date Drawn 17 AM Arterial Blood VENOUS LINE Gas Puncture Site Atilio Test N/A Venous Blood pH 7.089 *L Venous Blood 16.4 L pCO2 (Temp Corrected ) Venous Blood 72.9 H pO2 (Temp Corrected ) Venous Blood 4.9 L HCO3 Venous Blood 91.1 H Oxygen Saturation Venous Blood -22.8 L Base Excess Venous Blood 17.3 Total Hemoglobin Venous Blood 90.5 Oxyhemoglobin Venous Blood 0.5 Methemoglobin Blood Gas A-a 57.2 O2 Differential Carboxyhemoglob 0.2 in Blood Gas 37.0 Temperature Blood Gas 18 Actual Respiration Rat e Blood Gas ROOM AIR Modality FiO2 21.0 Blood Gas CITLALI,J.R.N. Critical Value Read Back Blood Gas CHRISTINA CAMILO Notified Whom Blood Gas 03/08/2019 1:24: Notified Time 35 AM Test 03/08/19 01:16 03/08/19 02:08 03/08/19 03:17 03/08/19 04:00 Sodium Level 139 Potassium Level 5.7 H Chloride Level 109 Carbon Dioxide < 5 *L Level Anion Gap 25 H Blood Urea 10 Nitrogen Creatinine 0.85 Est Glomerular > 60 Filtrat Rate mL/min Glucose Level 407 *H Calcium Level 9.5 Phosphorus 4.2 Level Magnesium Level 1.8 Bedside Glucose 382 H 362 H 330 H Test 03/08/19 05:09 03/08/19 05:11 03/08/19 06:24 03/08/19 07:22 Blood Gas Blood venous Specimen Source Arterial Blood 03/08/2019 5:09:0 Date Drawn 2 AM Arterial Blood VENOUS LINE Gas Puncture Site Atilio Test N/A Venous Blood pH 7.024 *L Venous Blood 17.1 L pCO2 (Temp Corrected ) Venous Blood 50.0 H pO2 (Temp Corrected ) Venous Blood 4.4 L HCO3 Venous Blood 79.2 H Oxygen Saturation Venous Blood -24.8 L Base Excess Venous Blood 16.8 Total Hemoglobin Venous Blood 78.4 Oxyhemoglobin Venous Blood 0.5 Methemoglobin Blood Gas A-a 79.3 O2 Differential Carboxyhemoglob 0.5 in Blood Gas 37.0 Temperature Blood Gas 18 Actual Respiration Rat e Blood Gas ROOM AIR Modality FiO2 21.0 Blood Gas CITLALI,J. R.N. Critical Value Read Back Blood Gas CHRISTINA CAMILO Notified Whom Blood Gas 03/08/2019 5:20:4 Notified Time 7 AM Bedside Glucose 286 H 217 207 Sodium Level 146 H Potassium Level 4.8 Chloride Level 115 H Carbon Dioxide 5 *L Level Anion Gap 26 H Blood Urea 11 Nitrogen Creatinine 0.99 Est Glomerular > 60 Filtrat Rate mL/min Glucose Level 318 H Calcium Level 9.2 Phosphorus 4.7 Level Magnesium Level 2.1 Test 03/08/19 08:07 03/08/19 09:02 03/08/19 09:09 03/08/19 09:36 Bedside Glucose 203 188 Blood Gas Blood venous Specimen Source Arterial Blood 03/08/2019 9:10: Date Drawn 55 AM Arterial Blood VENOUS LINE Gas Puncture Site Atilio Test N/A Venous Blood pH 7.143 *L Venous Blood 25.7 L pCO2 (Temp Corrected ) Venous Blood 42.8 H pO2 (Temp Corrected ) Venous Blood 8.6 L HCO3 Venous Blood 78.1 H Oxygen Saturation Venous Blood -18.7 L Base Excess Venous Blood 15.7 Total Hemoglobin Venous Blood 77.6 Oxyhemoglobin Venous Blood 0.4 Methemoglobin Carboxyhemoglob 0.2 in Blood Gas 37.0 Temperature Blood Gas ROOM AIR Modality FiO2 21.0 Blood Gas TROY GUERRERO Critical Value Read Back Blood Gas CW Notified Whom Blood Gas 03/08/2019 9:25: Notified Time 34 AM Sodium Level 145 H Potassium Level 4.3 Chloride Level 117 H Carbon Dioxide 10 #L Level Anion Gap 18 #H Blood Urea 10 Nitrogen Creatinine 0.87 Est Glomerular > 60 Filtrat Rate mL/min Glucose Level 205 # Calcium Level 8.9 Phosphorus 2.8 Level Magnesium Level 2.0 Test 03/08/19 10:06 03/08/19 11:04 03/08/19 11:59 03/08/19 13:04 Bedside Glucose 184 236 H 228 H 276 H Test 03/08/19 13:09 03/08/19 13:12 Blood Gas Blood venous Specimen Source Arterial Blood 03/08/2019 1:00:3 Date Drawn 9 PM Arterial Blood VENOUS LINE Gas Puncture Site Atilio Test N/A Venous Blood pH 7.249 L Venous Blood 26.4 L pCO2 (Temp Corrected ) Venous Blood 41.7 H pO2 (Temp Corrected ) Venous Blood 11.3 L HCO3 Venous Blood 81.3 H Oxygen Saturation Venous Blood -14.2 L Base Excess Venous Blood 14.7 Total Hemoglobin Venous Blood 80.7 Oxyhemoglobin Venous Blood 0.4 Methemoglobin Carboxyhemoglob 0.3 in Blood Gas 37.0 Temperature Blood Gas ROOM AIR Modality FiO2 21.0 Blood Gas CW Notified Whom Blood Gas 03/08/2019 1:19:5 Notified Time 9 PM Sodium Level 144 Potassium Level 4.4 Chloride Level 115 H Carbon Dioxide 14 L Level Anion Gap 15 H Blood Urea 9 Nitrogen Creatinine 0.77 Est Glomerular > 60 Filtrat Rate mL/min Glucose Level 241 H Calcium Level 8.9 Phosphorus 2.3 L Level Magnesium Level 2.0 Exam/Review of Systems Exam Vitals Vital Signs Date Temp Pulse Resp B/P (MAP) Pulse Ox O2 O2 Flow FiO2 Time Delivery Rate 03/08/19 94 12 105/77 100 Room Air 13:00 (86) 03/08/19 98.6 12:00 Intake and Output 03/07/19 03/07/19 03/08/19 1515:00 23:00 07:00 IntakeIntake Total 259.09 ml 2122.72 ml 2683.53 ml OutputOutput Total 2350 ml 2900 ml BalanceBalance 259.09 ml -227.28 ml -216.47 ml Results Results 24hrs Laboratory Tests Test 03/07/19 14:17 03/07/19 15:09 03/07/19 15:18 03/07/19 15:19 Bedside Glucose 321 H 283 H Blood Gas Blood venous Specimen Source Arterial Blood 03/07/2019 1:40: Date Drawn 39 PM Arterial Blood VENOUS LINE Gas Puncture Site Atilio Test N/A Venous Blood pH 7.182 *L Venous Blood 36.1 pCO2 (Temp Corrected ) Venous Blood 24.0 L pO2 (Temp Corrected ) Venous Blood 13.2 L HCO3 Venous Blood 36.5 L Oxygen Saturation Venous Blood -14.1 L Base Excess Venous Blood 16.9 Total Hemoglobin Venous Blood 36.0 Oxyhemoglobin Venous Blood 0.5 Methemoglobin Carboxyhemoglob 0.9 in Blood Gas 37.0 Temperature Blood Gas ROOM AIR Modality FiO2 21.0 Blood Gas PATRICIA Critical Value MIGUEL GUERRERO Read Back Blood Gas AH Notified Whom Blood Gas 03/07/2019 1:58: Notified Time 12 PM Sodium Level 139 Potassium Level 4.5 Chloride Level 105 Carbon Dioxide 15 L Level Anion Gap 19 #H Blood Urea 13 Nitrogen Creatinine 0.72 Est Glomerular > 60 Filtrat Rate mL/min Glucose Level 293 #H Calcium Level 9.4 Phosphorus 4.0 Level Magnesium Level 1.8 Test 03/07/19 16:26 03/07/19 17:09 03/07/19 17:18 03/07/19 17:19 Bedside Glucose 289 H 317 H Blood Gas Blood venous Specimen Source Arterial Blood 03/07/2019 5:15: Date Drawn 54 PM Arterial Blood VENOUS LINE Gas Puncture Site Atilio Test N/A Venous Blood pH 7.244 L Venous Blood 30.0 L pCO2 (Temp Corrected ) Venous Blood 40.9 H pO2 (Temp Corrected ) Venous Blood 12.7 L HCO3 Venous Blood 70.4 Oxygen Saturation Venous Blood -13.1 L Base Excess Venous Blood 16.6 Total Hemoglobin Venous Blood 69.4 Oxyhemoglobin Venous Blood 0.4 Methemoglobin Blood Gas A-a 72.9 O2 Differential Carboxyhemoglob 1.0 in Blood Gas 37.0 Temperature Blood Gas 18 Actual Respiration Rat e Blood Gas ROOM AIR Modality FiO2 21.0 Blood Gas RDIX Notified Whom Blood Gas 03/07/2019 5:36: Notified Time 06 PM Sodium Level 138 Potassium Level 4.8 Chloride Level 105 Carbon Dioxide 15 L Level Anion Gap 18 H Blood Urea 11 Nitrogen Creatinine 0.70 Est Glomerular > 60 Filtrat Rate mL/min Glucose Level 343 H Calcium Level 9.1 Phosphorus 3.8 Level Magnesium Level 1.9 Test 03/07/19 18:49 03/07/19 20:08 03/07/19 21:10 03/07/19 21:21 Bedside Glucose 318 H 321 H 334 H Urine Color STRAW Urine Clarity CLEAR Urine pH 5.0 Urine Specific 1.023 [place] Urine Ketones 2+ H Urine Nitrite NEGATIVE Urine Bilirubin NEGATIVE Urine NEGATIVE Urobilinogen Urine Leukocyte NEGATIVE Esterase Urine NEGATIVE Hemoglobin Urine Glucose 3+ H Urine Total NEGATIVE Protein Test 03/07/19 21:22 03/07/19 21:45 03/07/19 22:05 03/07/19 22:45 Sodium Level 137 Potassium Level 5.0 Chloride Level 107 Carbon Dioxide 8 #*L Level Anion Gap 22 H Blood Urea 9 Nitrogen Creatinine 0.76 Est Glomerular > 60 Filtrat Rate mL/min Glucose Level 382 H Calcium Level 9.4 Phosphorus 3.7 Level Magnesium Level 1.9 Blood Gas BLMV Blood venous Specimen Source Arterial Blood 03/07/2019 9:20: 03/07/2019 10:41 Date Drawn 58 PM :31 PM Arterial Blood VENOUS LINE VENOUS LINE Gas Puncture Site Atilio Test N/A N/A Venous Blood 55.2 H 59.7 H pO2 (Temp Corrected ) Venous Blood 87.1 H 87.6 H Oxygen Saturation Venous Blood 17.3 17.0 Total Hemoglobin Venous Blood 86.0 86.8 Oxyhemoglobin Venous Blood 0.5 0.5 Methemoglobin Carboxyhemoglob 0.8 0.4 in Blood Gas 37.0 37.0 Temperature Blood Gas 20 20 Actual Respiration Rat e Blood Gas ROOM AIR ROOM AIR Modality FiO2 21.0 21.0 Blood Gas ANNE-MARIE GOMEZ RCP Notified Whom Blood Gas 03/07/2019 9:50: 03/07/2019 10:53 Notified Time 08 PM :59 PM Bedside Glucose 379 H Venous Blood pH 7.150 *L Venous Blood 22.8 L pCO2 (Temp Corrected ) Venous Blood 7.8 L HCO3 Venous Blood -19.1 L Base Excess Blood Gas A-a 62.7 O2 Differential Blood Gas Amberly GODWIN Critical Value Read Back Test 03/07/19 23:12 03/08/19 00:09 03/08/19 01:09 03/08/19 01:13 Bedside Glucose 403 *H 372 H 388 H Blood Gas Blood venous Specimen Source Arterial Blood 03/08/2019 1:12: Date Drawn 17 AM Arterial Blood VENOUS LINE Gas Puncture Site Atilio Test N/A Venous Blood pH 7.089 *L Venous Blood 16.4 L pCO2 (Temp Corrected ) Venous Blood 72.9 H pO2 (Temp Corrected ) Venous Blood 4.9 L HCO3 Venous Blood 91.1 H Oxygen Saturation Venous Blood -22.8 L Base Excess Venous Blood 17.3 Total Hemoglobin Venous Blood 90.5 Oxyhemoglobin Venous Blood 0.5 Methemoglobin Blood Gas A-a 57.2 O2 Differential Carboxyhemoglob 0.2 in Blood Gas 37.0 Temperature Blood Gas 18 Actual Respiration Rat e Blood Gas ROOM AIR Modality FiO2 21.0 Blood Gas CITLALI,J.R.N. Critical Value Read Back Blood Gas CHRISTINA CAMILO Notified Whom Blood Gas 03/08/2019 1:24: Notified Time 35 AM Test 03/08/19 01:16 03/08/19 02:08 03/08/19 03:17 03/08/19 04:00 Sodium Level 139 Potassium Level 5.7 H Chloride Level 109 Carbon Dioxide < 5 *L Level Anion Gap 25 H Blood Urea 10 Nitrogen Creatinine 0.85 Est Glomerular > 60 Filtrat Rate mL/min Glucose Level 407 *H Calcium Level 9.5 Phosphorus 4.2 Level Magnesium Level 1.8 Bedside Glucose 382 H 362 H 330 H Test 03/08/19 05:09 03/08/19 05:11 03/08/19 06:24 03/08/19 07:22 Blood Gas Blood venous Specimen Source Arterial Blood 03/08/2019 5:09:0 Date Drawn 2 AM Arterial Blood VENOUS LINE Gas Puncture Site Atilio Test N/A Venous Blood pH 7.024 *L Venous Blood 17.1 L pCO2 (Temp Corrected ) Venous Blood 50.0 H pO2 (Temp Corrected ) Venous Blood 4.4 L HCO3 Venous Blood 79.2 H Oxygen Saturation Venous Blood -24.8 L Base Excess Venous Blood 16.8 Total Hemoglobin Venous Blood 78.4 Oxyhemoglobin Venous Blood 0.5 Methemoglobin Blood Gas A-a 79.3 O2 Differential Carboxyhemoglob 0.5 in Blood Gas 37.0 Temperature Blood Gas 18 Actual Respiration Rat e Blood Gas ROOM AIR Modality FiO2 21.0 Blood Gas Marina GODWIN R.N. Critical Value Read Back Blood Gas CHRISTINA CAMILO Notified Whom Blood Gas 03/08/2019 5:20:4 Notified Time 7 AM Bedside Glucose 286 H 217 207 Sodium Level 146 H Potassium Level 4.8 Chloride Level 115 H Carbon Dioxide 5 *L Level Anion Gap 26 H Blood Urea 11 Nitrogen Creatinine 0.99 Est Glomerular > 60 Filtrat Rate mL/min Glucose Level 318 H Calcium Level 9.2 Phosphorus 4.7 Level Magnesium Level 2.1 Test 03/08/19 08:07 03/08/19 09:02 03/08/19 09:09 03/08/19 09:36 Bedside Glucose 203 188 Blood Gas Blood venous Specimen Source Arterial Blood 03/08/2019 9:10: Date Drawn 55 AM Arterial Blood VENOUS LINE Gas Puncture Site Atilio Test N/A Venous Blood pH 7.143 *L Venous Blood 25.7 L pCO2 (Temp Corrected ) Venous Blood 42.8 H pO2 (Temp Corrected ) Venous Blood 8.6 L HCO3 Venous Blood 78.1 H Oxygen Saturation Venous Blood -18.7 L Base Excess Venous Blood 15.7 Total Hemoglobin Venous Blood 77.6 Oxyhemoglobin Venous Blood 0.4 Methemoglobin Carboxyhemoglob 0.2 in Blood Gas 37.0 Temperature Blood Gas ROOM AIR Modality FiO2 21.0 Blood Gas TROY GUERRERO Critical Value Read Back Blood Gas CW Notified Whom Blood Gas 03/08/2019 9:25: Notified Time 34 AM Sodium Level 145 H Potassium Level 4.3 Chloride Level 117 H Carbon Dioxide 10 #L Level Anion Gap 18 #H Blood Urea 10 Nitrogen Creatinine 0.87 Est Glomerular > 60 Filtrat Rate mL/min Glucose Level 205 # Calcium Level 8.9 Phosphorus 2.8 Level Magnesium Level 2.0 Test 03/08/19 10:06 03/08/19 11:04 03/08/19 11:59 03/08/19 13:04 Bedside Glucose 184 236 H 228 H 276 H Test 03/08/19 13:09 03/08/19 13:12 Blood Gas Blood venous Specimen Source Arterial Blood 03/08/2019 1:00:3 Date Drawn 9 PM Arterial Blood VENOUS LINE Gas Puncture Site Atilio Test N/A Venous Blood pH 7.249 L Venous Blood 26.4 L pCO2 (Temp Corrected ) Venous Blood 41.7 H pO2 (Temp Corrected ) Venous Blood 11.3 L HCO3 Venous Blood 81.3 H Oxygen Saturation Venous Blood -14.2 L Base Excess Venous Blood 14.7 Total Hemoglobin Venous Blood 80.7 Oxyhemoglobin Venous Blood 0.4 Methemoglobin Carboxyhemoglob 0.3 in Blood Gas 37.0 Temperature Blood Gas ROOM AIR Modality FiO2 21.0 Blood Gas CW Notified Whom Blood Gas 03/08/2019 1:19:5 Notified Time 9 PM Sodium Level 144 Potassium Level 4.4 Chloride Level 115 H Carbon Dioxide 14 L Level Anion Gap 15 H Blood Urea 9 Nitrogen Creatinine 0.77 Est Glomerular > 60 Filtrat Rate mL/min Glucose Level 241 H Calcium Level 8.9 Phosphorus 2.3 L Level Magnesium Level 2.0 Medications Medication Current Medications Potassium Chloride/Sodium Chloride 1,000 ml @ 0 mls/hr Q0M IV ; Start 03/07/19 at 13:09 Potassium Chloride/Dextrose/ Sod Cl 1,000 ml @ 0 mls/hr Q0M IV ; Start 03/07/19 at 13:09 Potassium Chloride/Sodium Chloride 1,000 ml @ 0 mls/hr Q0M IV Last administere d on 03/08/19at 09:11; Admin Dose 200 MLS/HR; Start 03/07/19 at 13:09 Potassium Chloride/Dextrose/ Sod Cl 1,000 ml @ 0 mls/hr Q0M IV Last administered on 03/08/19at 10:11; Admin Dose 250 MLS/HR; Start 03/07/19 at 13:09 Sodium Chloride 1,000 ml @ 0 mls/hr Q0M IV Last administered on 03/08/19at 05:56; Admin Dose 400 MLS/HR; Start 03/07/19 at 13:09 Dextrose/Sodium Chloride 1,000 ml @ 0 mls/hr Q0M IV ; Start 03/07/19 at 13:09 Insulin Human Regular 100 unit/ Sodium Chloride 101 ml @ 9.09 mls/hr ER DKA MT OTOCOL IV Last administered on 03/08/19at 09:34; Admin Dose 11 MLS/HR; Start 03/07/19 at 13:30 Miscellaneous Information (* Miscellaneous Pharmacy Order) HYPOGLYCEMIA TREATMENT HYPOGLYCEM PROTOCOL PRN XX .HYPOGLYCEMIA PROTOCOL; Start 03/07/19 at 13:30 Dextrose (D50w Syringe) 50 ml Q15M PRN IV .DECREASED GLUCOSE; Start 03/07/19 at 13:30 Dextrose (D50w Syringe) 25 ml Q15M PRN IV .DECREASED GLUCOSE; Start 03/07/19 at 13:30 Acetaminophen (Tylenol Tab) 650 mg Q6H PRN PO PAIN LEVEL 1-3 OR FEVER; Start 03/07/19 at 14:00 Docusate Sodium (Colace) 100 mg Q12H PRN PO CONSTIPATION; Start 03/07/19 at 14:00 Magnesium Hydroxide (Milk Of Mag) 30 ml DAILY PRN PO CONSTIPATION; Start 03/07/19 at 14:00 Famotidine (Pepcid Iv) 20 mg Q12 IV Last administered on 03/08/19at 08:07; Admin Dose 20 MG; Start 03/07/19 at 21:00 Enoxaparin Sodium (Lovenox) 40 mg DAILY SC Last administered on 03/08/19at 08:24; Admin Dose 40 MG; Start 03/08/19 at 09:00 Ondansetron HCl (Zofran Inj) 4 mg Q4H PRN IV NAUSEA AND/OR VOMITING Last administered on 03/08/19at 13:14; Admin Dose 4 MG; Start 03/07/19 at 18:00 Diagnostic Test (Pha) (Accu-Chek) 1 ea 02 XX ; Start 03/08/19 at 02:00 Insulin Glargine (Lantus) 30 units DAILY@2000 SC Last administered on 03/07/19at 21:30; Admin Dose 30 UNITS; Start 03/07/19 at 20:00 Insulin Aspart (Novolog Insulin Pen) 14 unit WITH MEALS SC ; Start 03/08/19 at 07:35; Status UNV Insulin Aspart (Novolog Insulin Pen) NOVOLOG *MODERATE* ALGORITHM WITH MEALS BEDTIME SC ; Start 03/07/19 at 21:00; Status UNV MALICK BONDS MD Mar 08, 2019 14:05
[2019-03-08] MEDS: INSULIN GLARGINE [LANTus] (100 UNITS/ML) SYG SC SCH (21:05)
[2019-03-08] MEDS: POTASSIUM PHOSPHATE 30 MM in SOD CHLORIDE 0.9% 250 ML IVPB ONE (23:00)
[2019-03-08] MEDS ORDERED: MAGNESIUM SULFATE 4 GM/100 ML 100 ML IVPB ONE (23:00)
[2019-03-08] MEDS ORDERED: MAGNESIUM SULFATE 2 GM/50 ML 50 ML ONE (23:11)
[2019-03-08] MEDS ORDERED: POTASSIUM PHOSPHATE 40 MEQ in SOD CHLORIDE 0.9% 250 ML IVPB ONE (23:30)
[2019-03-08] MEDS ORDERED: MAGNESIUM SULFATE 2 GM/50 ML 50 ML IVPB ONE (23:30)
[2019-03-09] VITALS (9 sets, daily range): BP systolic 112–144; BP diastolic 63–82; PULSE 86–96; RESP 15–19
[2019-03-09] MEDS: POTASSIUM PHOSPHATE 30 MM in SOD CHLORIDE 0.9% 250 ML IVPB ONE (00:15)
[2019-03-09] MEDS: ACCU-CHEK XX SCH (02:21)
[2019-03-09] MEDS: ONDANSETRON 4 MG INJ IV PRN (05:43)
[2019-03-09] MEDS ORDERED: MAGNESIUM SULFATE 2 GM/50 ML 50 ML IVPB ONE (08:00)
[2019-03-09] MEDS: FAMOTIDINE 20 MG INJ IV SCH (08:23)
[2019-03-09] MEDS: INSULIN ASPART [NOVOLOG] 3 ML PEN SC SCH ×6 (08:44→17:17)
[2019-03-09] MEDS: ENOXAPARIN 40 MG/0.4 ML SYG SC SCH (08:45)
--- NOTE | 2019-03-09 12:15 | PN ---
Date/Time of Note Date/Time of Note DATE: 03/09/19 TIME: 12:14 Assessment/Plan VTE Prophylaxis Risk score (from Nsg)>0 risk: 0 SCD applied (from Nsg): Yes SCD contraindicated: low risk/ambulating Pharmacological prophylaxis: LMWH Lines/Catheters IV Catheter Type (from Nrsg): Saline Lock Urinary Cath still in place: No Assessment/Plan Hospital Course Assessment plan 1. DKA,stable cont insulin. etio? No evidence of fever/ infection. Dietary indiscretion? 2. Chronic type DMI 3. Nonadherence to dietary therapy? 4. Chronic generalized anxiety disorder 5. Tobacco abuse status post counseling offered patch 6. Subclinical Hyperthyroidism? S: 03/08 Events noted no fever 03/09 better. home soon O: Vss PE No pallor Regular Clear Bs + nt nd no RRG No edema Result Diagram: 03/07/19 1236 03/09/19 0439 Results 24hrs Laboratory Tests Test 03/08/19 13:04 03/08/19 13:09 03/08/19 13:12 03/08/19 14:01 Bedside Glucose 276 H 248 H Blood Gas Blood venous Specimen Source Arterial Blood 03/08/2019 1:00:39 Date Drawn PM Arterial Blood VENOUS LINE Gas Puncture Site Atilio Test N/A Venous Blood pH 7.249 L Venous Blood 26.4 L pCO2 (Temp Corrected) Venous Blood pO2 41.7 H (Temp Corrected) Venous Blood 11.3 L HCO3 Venous Blood 81.3 H Oxygen Saturation Venous Blood -14.2 L Base Excess Venous Blood 14.7 Total Hemoglobin Venous Blood 80.7 Oxyhemoglobin Venous Blood 0.4 Methemoglobin Carboxyhemoglobi 0.3 n Blood Gas 37.0 Temperature Blood Gas ROOM AIR Modality FiO2 21.0 Blood Gas CW Notified Whom Blood Gas 03/08/2019 1:19:59 Notified Time PM Sodium Level 144 Potassium Level 4.4 Chloride Level 115 H Carbon Dioxide 14 L Level Anion Gap 15 H Blood Urea 9 Nitrogen Creatinine 0.77 Est Glomerular > 60 Filtrat Rate mL/min Glucose Level 241 H Calcium Level 8.9 Phosphorus Level 2.3 L Magnesium Level 2.0 Test 03/08/19 15:02 03/08/19 16:04 03/08/19 17:09 03/08/19 17:15 Bedside Glucose 218 158 201 Blood Gas Blood venous Specimen Source Arterial Blood 03/08/2019 5:20:12 Date Drawn PM Arterial Blood OTHER Gas Puncture Site Atilio Test N/A Venous Blood pH 7.258 L Venous Blood 39.8 pCO2 (Temp Corrected) Venous Blood pO2 24.1 L (Temp Corrected) Venous Blood 17.4 L HCO3 Venous Blood 52.3 L Oxygen Saturation Venous Blood -9.1 L Base Excess Venous Blood 16.6 Total Hemoglobin Venous Blood 51.8 Oxyhemoglobin Venous Blood 0.3 Methemoglobin Blood Gas A-a O2 78.0 Differential Carboxyhemoglobi 0.7 n Blood Gas 37.0 Temperature Blood Gas ROOM AIR Modality FiO2 21.0 Blood Gas CHRISTINA HUMPHRIES Notified Whom Blood Gas 03/08/2019 5:33:38 Notified Time PM Test 03/08/19 17:20 03/08/19 18:03 03/08/19 21:03 03/08/19 21:47 Sodium Level 141 137 Potassium Level 3.8 3.3 L Chloride Level 116 H 112 H Carbon Dioxide 18 L 21 Level Anion Gap 7 # 4 L Blood Urea 8 10 Nitrogen Creatinine 0.67 0.68 Est Glomerular > 60 > 60 Filtrat Rate mL/min Glucose Level 192 114 # Calcium Level 9.0 8.9 Phosphorus Level 1.5 L 1.4 L Magnesium Level 1.9 1.7 Thyroid 0.073 L Stimulating Hormone (TSH) Bedside Glucose 168 142 Test 03/08/19 22:08 03/09/19 02:19 03/09/19 04:39 03/09/19 08:22 Bedside Glucose 89 188 222 H Sodium Level 137 Potassium Level 3.6 Chloride Level 109 Carbon Dioxide 22 Level Anion Gap 6 Blood Urea 9 Nitrogen Creatinine 0.60 L Est Glomerular > 60 Filtrat Rate mL/min Glucose Level 230 #H Calcium Level 8.5 Phosphorus Level 3.0 Magnesium Level 1.8 Free Thyroxine 0.88 Total 0.63 L Triiodothyronine Test 03/09/19 12:02 Bedside Glucose 119 Exam/Review of Systems Exam Vitals Vital Signs Date Temp Pulse Resp B/P (MAP) Pulse Ox O2 O2 Flow FiO2 Time Delivery Rate 03/09/19 98.3 96 19 144/80 100 Room Air 11:02 (101) Intake and Output 03/08/19 03/08/19 03/09/19 1515:00 23:00 07:00 IntakeIntake Total 2352.99 ml 3151.63 ml 510 ml OutputOutput Total 1700 ml 1300 ml 300 ml BalanceBalance 652.99 ml 1851.63 ml 210 ml Results Results 24hrs Laboratory Tests Test 03/08/19 13:04 03/08/19 13:09 03/08/19 13:12 03/08/19 14:01 Bedside Glucose 276 H 248 H Blood Gas Blood venous Specimen Source Arterial Blood 03/08/2019 1:00:39 Date Drawn PM Arterial Blood VENOUS LINE Gas Puncture Site Atilio Test N/A Venous Blood pH 7.249 L Venous Blood 26.4 L pCO2 (Temp Corrected) Venous Blood pO2 41.7 H (Temp Corrected) Venous Blood 11.3 L HCO3 Venous Blood 81.3 H Oxygen Saturation Venous Blood -14.2 L Base Excess Venous Blood 14.7 Total Hemoglobin Venous Blood 80.7 Oxyhemoglobin Venous Blood 0.4 Methemoglobin Carboxyhemoglobi 0.3 n Blood Gas 37.0 Temperature Blood Gas ROOM AIR Modality FiO2 21.0 Blood Gas CW Notified Whom Blood Gas 03/08/2019 1:19:59 Notified Time PM Sodium Level 144 Potassium Level 4.4 Chloride Level 115 H Carbon Dioxide 14 L Level Anion Gap 15 H Blood Urea 9 Nitrogen Creatinine 0.77 Est Glomerular > 60 Filtrat Rate mL/min Glucose Level 241 H Calcium Level 8.9 Phosphorus Level 2.3 L Magnesium Level 2.0 Test 03/08/19 15:02 03/08/19 16:04 03/08/19 17:09 03/08/19 17:15 Bedside Glucose 218 158 201 Blood Gas Blood venous Specimen Source Arterial Blood 03/08/2019 5:20:12 Date Drawn PM Arterial Blood OTHER Gas Puncture Site Atilio Test N/A Venous Blood pH 7.258 L Venous Blood 39.8 pCO2 (Temp Corrected) Venous Blood pO2 24.1 L (Temp Corrected) Venous Blood 17.4 L HCO3 Venous Blood 52.3 L Oxygen Saturation Venous Blood -9.1 L Base Excess Venous Blood 16.6 Total Hemoglobin Venous Blood 51.8 Oxyhemoglobin Venous Blood 0.3 Methemoglobin Blood Gas A-a O2 78.0 Differential Carboxyhemoglobi 0.7 n Blood Gas 37.0 Temperature Blood Gas ROOM AIR Modality FiO2 21.0 Blood Gas CHRISTINA HUMPHRIES Notified Whom Blood Gas 03/08/2019 5:33:38 Notified Time PM Test 03/08/19 17:20 03/08/19 18:03 03/08/19 21:03 03/08/19 21:47 Sodium Level 141 137 Potassium Level 3.8 3.3 L Chloride Level 116 H 112 H Carbon Dioxide 18 L 21 Level Anion Gap 7 # 4 L Blood Urea 8 10 Nitrogen Creatinine 0.67 0.68 Est Glomerular > 60 > 60 Filtrat Rate mL/min Glucose Level 192 114 # Calcium Level 9.0 8.9 Phosphorus Level 1.5 L 1.4 L Magnesium Level 1.9 1.7 Thyroid 0.073 L Stimulating Hormone (TSH) Bedside Glucose 168 142 Test 03/08/19 22:08 03/09/19 02:19 03/09/19 04:39 03/09/19 08:22 Bedside Glucose 89 188 222 H Sodium Level 137 Potassium Level 3.6 Chloride Level 109 Carbon Dioxide 22 Level Anion Gap 6 Blood Urea 9 Nitrogen Creatinine 0.60 L Est Glomerular > 60 Filtrat Rate mL/min Glucose Level 230 #H Calcium Level 8.5 Phosphorus Level 3.0 Magnesium Level 1.8 Free Thyroxine 0.88 Total 0.63 L Triiodothyronine Test 03/09/19 12:02 Bedside Glucose 119 Medications Medication Current Medications Potassium Chloride/Sodium Chloride 1,000 ml @ 0 mls/hr Q0M IV ; Start 03/07/19 at 13:09 Potassium Chloride/Dextrose/ Sod Cl 1,000 ml @ 0 mls/hr Q0M IV ; Start 03/07/19 at 13:09 Potassium Chloride/Sodium Chloride 1,000 ml @ 0 mls/hr Q0M IV Last administered on 03/08/19at 09:11; Admin Dose 200 MLS/HR; Start 03/07/19 at 13:09 Potassium Chloride/Dextrose/ Sod Cl 1,000 ml @ 0 mls/hr Q0M IV Last administered on 03/08/19at 15:06; Admin Dose 200 MLS/HR; Start 03/07/19 at 13:09 Sodium Chloride 1,000 ml @ 0 mls/hr Q0M IV Last administered on 03/08/19at 05:56; Admin Dose 400 MLS/HR; Start 03/07/19 at 13:09 Dextrose/Sodium Chloride 1,000 ml @ 0 mls/hr Q0M IV ; Start 03/07/19 at 13:09 Insulin Human Regular 100 unit/ Sodium Chloride 101 ml @ 9.09 mls/hr ER DKA PROTOCOL IV Last administered on 03/08/19 17:24; Admin Dose 11 MLS/HR; Start 03/07/19 at 13:30 Miscellaneous Information (* Miscellaneous Pharmacy Order) HYPOGLYCEMIA TREATMENT HYPOGLYCEM PROTOCOL PRN XX .HYPOGLYCEMIA PROTOCOL; Start 03/07/19 at 13:30 Dextrose (D50w Syringe) 50 ml Q15M PRN IV .DECREASED GLUCOSE; Start 03/07/19 at 13:30 Dextrose (D50w Syringe) 25 ml Q15M PRN IV .DECREASED GLUCOSE; Start 03/07/19 at 13:30 Acetaminophen (Tylenol Tab) 650 mg Q6H PRN PO PAIN LEVEL 1-3 OR FEVER; Start 03/07/19 at 14:00 Docusate Sodium (Colace) 100 mg Q12H PRN PO CONSTIPATION; Start 03/07/19 at 14:00 Magnesium Hydroxide (Milk Of Mag) 30 ml DAILY PRN PO CONSTIPATION; Start 03/07/19 at 14:00 Famotidine (Pepcid Iv) 20 mg Q12 IV Last administered on 03/09/19 08:23; Admin Dose 20 MG; Start 03/07/19 at 21:00 Enoxaparin Sodium (Lovenox) 40 mg DAILY SC Last administered on 03/09/19 08:45; Admin Dose 40 MG; Start 03/08/19 at 09:00 Ondansetron HCl (Zofran Inj) 4 mg Q4H PRN IV NAUSEA AND/OR VOMITING Last administered on 03/09/19 05:43; Admin Dose 4 MG; Start 03/07/19 at 18:00 Diagnostic Test (Pha) (Accu-Chek) 1 ea 02 XX Last administered on 03/09/19 02:21; Admin Dose 1 EA; Start 03/08/19 at 02:00 Insulin Glargine (Lantus) 30 units DAILY@2000 SC Last administered on 03/08/19 21:05; Admin Dose 30 UNITS; Start 03/07/19 at 20:00 Insulin Aspart (Novolog Insulin Pen) 14 unit WITH MEALS SC Last administered on 03/09/19 12:06; Admin Dose 14 UNIT; Start 03/08/19 at 07:35 Insulin Aspart (Novolog Insulin Pen) NOVOLOG *MODERATE* ALGORITHM WITH MEALS BEDTIME SC Last administered on 03/09/19at 08:44; Admin Dose 6 UNIT; Start 03/07/19 at 21:00 MALICK BONDS MD Mar 09, 2019 12:15
--- NOTE | 2019-03-09 16:41 | CONS ---
Assessment/Plan Assessment/Plan Problems: (1) Diabetic ketoacidosis Status: Resolved Qualifiers: Diabetes mellitus type: type 1 Diabetes mellitus complication detail: without coma Qualified Codes: E10.10 - Type 1 diabetes mellitus with ketoacidosis without coma (2) Diabetes mellitus type 1, uncontrolled, insulin dependent Status: Chronic Comment: Pt. w/ excellent response to new insulin doses. FBG a little elevated and this may indicate still needs either more lantus (maybe up to 35 units qhs) or add NPH at bedtime alongside lantus to combat brandin phenomenon. However, Novolog dose appears to be highly effective to control post-prandial blood glucose levels. Ok from endo standpoint to d/c home and would continue these doses after d/c. F/u w/ Dr. Cagle in our office. Consultation Date/Type/Reason Admit Date/Time Mar 07, 2019 at 13:25 Initial Consult Date 03/07/19 Type of Consult Endocrinology Reason for Consultation DKA and T1DM OOC Requesting Provider: DELFINA MEJIA MD Date/Time of Note DATE: 03/09/19 TIME: 16:38 24 HR Interval Summary Constitutional: no complaints, improved (feels back to baseline) Detailed Summary Respiratory: no complaints Cardiovascular: no complaints Gastrointestinal: no complaints Genitourinary: no complaints Musculoskeletal: no complaints Neurologic: no complaints Exam/Review of Systems Exam Vitals VS - Last 72 Hours, by Label Date Temp Pulse Resp B/P (MAP) Pulse Ox O2 O2 Flow FiO2 Time Delivery Rate 03/09/19 98.5 90 19 125/77 95 Room Air 15:23 (93) 03/09/19 98.3 96 19 144/80 100 Room Air 11:02 (101) 03/09/19 98.1 89 18 121/67 96 Room Air 07:20 (85) 03/09/19 99.4 88 18 122/75 98 Room Air 05:29 (91) 03/09/19 98.2 86 17 115/82 99 Room Air 04:00 (93) 03/09/19 87 17 112/72 98 Room Air 03:00 (85) 03/09/19 93 15 113/76 97 Room Air 02:00 (88) 03/09/19 91 15 123/77 100 Room Air 01:00 (92) 03/09/19 98.0 89 17 120/63 100 Room Air 00:00 (82) 03/08/19 98 18 116/69 94 Room Air 23:00 (85) 03/08/19 88 17 110/72 99 Room Air 22:00 (85) 03/08/19 104 18 122/84 98 Room Air 21:00 (97) 03/08/19 97.9 99 21 123/84 100 Room Air 20:00 (97) 03/08/19 90 16 119/82 100 Room Air 19:00 (94) 03/08/19 93 19 113/81 99 Room Air 18:00 (92) 03/08/19 103 16 110/68 99 Room Air 17:00 (82) 03/08/19 98.5 97 14 114/77 100 Room Air 16:00 (89) 03/08/19 84 16 120/77 99 Room Air 15:00 (91) 03/08/19 92 13 98/55 (69) 100 Room Air 14:00 03/08/19 94 12 105/77 100 Room Air 13:00 (86) 03/08/19 98.6 96 15 111/77 100 Room Air 12:00 (88) 03/08/19 102 16 114/71 100 Room Air 11:00 (85) 03/08/19 104 17 106/67 100 Room Air 10:00 (80) 03/08/19 100 16 124/70 100 Room Air 09:00 (88) 03/08/19 98.5 113 17 113/70 100 Room Air 08:00 (84) 03/08/19 109 17 120/76 100 Room Air 07:00 (91) 03/08/19 107 19 123/78 100 Room Air 06:00 (93) 03/08/19 116 17 122/100 100 Room Air 05:00 (107) 03/08/19 97.8 112 18 110/69 100 Room Air 04:00 (83) 03/08/19 107 20 105/57 100 Room Air 03:00 (73) 03/08/19 107 19 117/68 100 Room Air 02:00 (84) 03/08/19 116 19 137/53 100 Room Air 01:00 (81) 03/08/19 97.8 117 18 139/66 100 Room Air 00:00 (90) 03/07/19 111 18 134/59 100 Room Air 23:00 (84) 03/07/19 114 13 124/53 100 Room Air 22:00 (76) 03/07/19 113 17 132/78 98 Room Air 21:00 (96) 03/07/19 107 18 116/71 97 Room Air 20:00 (86) 03/07/19 97.8 101 13 131/72 100 Room Air 19:00 (91) 03/07/19 106 19 131/90 100 Room Air 18:00 (104) 03/07/19 99 17 111/75 98 Room Air 17:00 (87) 03/07/19 98.5 86 15 109/69 100 Room Air 16:00 (82) 03/07/19 14 105/73 98 Room Air 15:00 (84) 03/07/19 96 18 122/105 99 Room Air 14:30 (111) 03/07/19 100 18 131/84 99 Room Air 13:20 (100) 03/07/19 97.8 114 24 135/81 99 12:21 (99) Vital Signs Date Temp Pulse Resp B/P (MAP) Pulse Ox O2 O2 Flow FiO2 Time Delivery Rate 03/09/19 98.5 90 19 125/77 95 Room Air 15:23 (93) Intake and Output 03/08/19 03/08/19 03/09/19 1515:00 23:00 07:00 IntakeIntake Total 2352.99 ml 3151.63 ml 510 ml OutputOutput Total 1700 ml 1300 ml 300 ml BalanceBalance 652.99 ml 1851.63 ml 210 ml Constitutional: alert, oriented, well developed Respiratory: clear to auscultation, normal air movement Cardiovascular: regular rate and rhythm, nl pulses; No edema, No murmurs/extra sounds, No rub Gastrointestinal: soft, nl liver, spleen, non-tender, bowel sounds; No mass, No rebound or guarding Musculoskeletal: nl extremities to inspection Extremities: normal pulses; No cyanosis, No clubbing, No edema Neurological: MOVING PICTURE PRODUCER II-XII intact, nl mental status, nl speech, nl strength Additional Comments Bedside Glucose - 72 Hours Test 03/07/19 12:30 03/07/19 14:17 03/07/19 15:18 03/07/19 16:26 Bedside 436 321 283 289 Glucose mg/dL (70-220) mg/dL (70-220) mg/dL (70-220) mg/dL (70-220) *H H H H Test 03/07/19 17:18 03/07/19 18:49 03/07/19 20:08 03/07/19 21:21 Bedside 317 318 321 334 Glucose mg/dL (70-220) mg/dL (70-220) mg/dL (70-220) mg/dL (70-220) H H H H Test 03/07/19 22:05 03/07/19 23:12 03/08/19 00:09 03/08/19 01:13 Bedside 379 403 372 388 Glucose mg/dL (70-220) mg/dL (70-220) mg/dL (70-220) mg/dL (70-220) H *H H H Test 03/08/19 02:08 03/08/19 03:17 03/08/19 04:00 03/08/19 05:09 Bedside 382 362 330 286 Glucose mg/dL (70-220) mg/dL (70-220) mg/dL (70-220) mg/dL (70-220) H H H H Test 03/08/19 06:24 03/08/19 07:22 03/08/19 08:07 03/08/19 09:02 Bedside 217 207 203 188 Glucose mg/dL (70-220) mg/dL (70-220) mg/dL (70-220) mg/dL (70-220) Test 03/08/19 10:06 03/08/19 11:04 03/08/19 11:59 03/08/19 13:04 Bedside 184 236 228 276 Glucose mg/dL (70-220) mg/dL (70-220) mg/dL (70-220) mg/dL (70-220) H H H Test 03/08/19 14:01 03/08/19 15:02 03/08/19 16:04 03/08/19 17:15 Bedside 248 218 158 201 Glucose mg/dL (70-220) mg/dL (70-220) mg/dL (70-220) mg/dL (70-220) H Test 03/08/19 18:03 03/08/19 21:03 03/08/19 22:08 03/09/19 02:19 Bedside 168 142 89 188 Glucose mg/dL (70-220) mg/dL (70-220) mg/dL (70-220) mg/dL (70-220) Test 03/09/19 08:22 03/09/19 12:02 Bedside 222 119 Glucose mg/dL (70-220) mg/dL (70-220) H Results Result Diagram: 03/07/19 1236 03/09/19 0439 Results 24hrs Laboratory Tests Test 03/08/19 17:09 03/08/19 17:15 03/08/19 17:20 03/08/19 18:03 Blood Gas Specimen Blood venous Source Arterial Blood 03/08/2019 5:20:12 Date Drawn PM Arterial Blood Gas OTHER Puncture Site Atilio Test N/A Venous Blood pH 7.258 L Venous Blood pCO2 39.8 (Temp Corrected) Venous Blood pO2 24.1 L (Temp Corrected) Venous Blood HCO3 17.4 L Venous Blood 52.3 L Oxygen Saturation Venous Blood Base -9.1 L Excess Venous Blood Total 16.6 Hemoglobin Venous Blood 51.8 Oxyhemoglobin Venous Blood 0.3 Methemoglobin Blood Gas A-a O2 78.0 Differential Carboxyhemoglobin 0.7 Blood Gas 37.0 Temperature Blood Gas Modality ROOM AIR FiO2 21.0 Blood Gas Notified CHRISTINA HUMPHRIES Whom Blood Gas Notified 03/08/2019 5:33:38 Time PM Bedside Glucose 201 168 Sodium Level 141 Potassium Level 3.8 Chloride Level 116 H Carbon Dioxide 18 L Level Anion Gap 7 # Blood Urea 8 Nitrogen Creatinine 0.67 Est Glomerular > 60 Filtrat Rate mL/min Glucose Level 192 Calcium Level 9.0 Phosphorus Level 1.5 L Magnesium Level 1.9 Thyroid 0.073 L Stimulating Hormone (TSH) Test 03/08/19 21:03 03/08/19 21:47 03/08/19 22:08 03/09/19 02:19 Bedside Glucose 142 89 188 Sodium Level 137 Potassium Level 3.3 L Chloride Level 112 H Carbon Dioxide 21 Level Anion Gap 4 L Blood Urea 10 Nitrogen Creatinine 0.68 Est Glomerular > 60 Filtrat Rate mL/min Glucose Level 114 # Calcium Level 8.9 Phosphorus Level 1.4 L Magnesium Level 1.7 Test 03/09/19 04:39 03/09/19 08:22 03/09/19 12:02 Sodium Level 137 Potassium Level 3.6 Chloride Level 109 Carbon Dioxide 22 Level Anion Gap 6 Blood Urea 9 Nitrogen Creatinine 0.60 L Est Glomerular > 60 Filtrat Rate mL/min Glucose Level 230 #H Calcium Level 8.5 Phosphorus Level 3.0 Magnesium Level 1.8 Free Thyroxine 0.88 Total 0.63 L Triiodothyronine Bedside Glucose 222 H 119 Medications Medication Current Medications Dextrose (D50w Syringe) 50 ml Q15M PRN IV .DECREASED GLUCOSE; Start 03/07/19 at 13:30 Dextrose (D50w Syringe) 25 ml Q15M PRN IV .DECREASED GLUCOSE; Start 03/07/19 at 13:30 Acetaminophen (Tylenol Tab) 650 mg Q6H PRN PO PAIN LEVEL 1-3 OR FEVER; Start 03/07/19 at 14:00 Docusate Sodium (Colace) 100 mg Q12H PRN PO CONSTIPATION; Start 03/07/19 at 14:00 Magnesium Hydroxide (Milk Of Mag) 30 ml DAILY PRN PO CONSTIPATION; Start 03/07/19 at 14:00 Famotidine (Pepcid Iv) 20 mg Q12 IV Last administered on 03/09/19at 08:23; Admin Dose 20 MG; Start 03/07/19 at 21:00 Enoxaparin Sodium (Lovenox) 40 mg DAILY SC Last administered on 03/09/19 08:45; Admin Dose 40 MG; Start 03/08/19 at 09:00 Ondansetron HCl (Zofran Inj) 4 mg Q4H PRN IV NAUSEA AND/OR VOMITING Last administered on 03/09/19 05:43; Admin Dose 4 MG; Start 03/07/19 at 18:00 Diagnostic Test (Pha) (Accu-Chek) 1 ea 02 XX Last administered on 03/09/19at 02:21; Admin Dose 1 EA; Start 03/08/19 at 02:00 Insulin Glargine (Lantus) 30 units DAILY@2000 SC Last administered on 03/08/19 21:05; Admin Dose 30 UNITS; Start 03/07/19 at 20:00 Insulin Aspart (Novolog Insulin Pen) 14 unit WITH MEALS SC Last administered on 03/09/19at 12:06; Admin Dose 14 UNIT; Start 03/08/19 at 07:35 Insulin Aspart (Novolog Insulin Pen) NOVOLOG *MODERATE* ALGORITHM WITH MEALS BEDTIME SC Last administered on 03/09/19at 08:44; Admin Dose 6 UNIT; Start 03/07/19 at 21:00 TYLER LEHMAN MD Mar 09, 2019 16:41
--- NOTE | 2019-03-09 17:06 | PDOCDIS ---
Discharge Instructions CONDITION [id number] Patient Condition: [id number] Stable HOME CARE INSTRUCTIONS: [id number] Diet Instructions: [id number] d Activity Restrictions: [id number] Slowly Increase Activity FOLLOW UP/APPOINTMENTS Follow-up Plan Dr Cagle 1wk PCP 1wk MALICK BONDS MD Mar 09, 2019 17:06
== END 2019-03-09 18:00 | disposition home or self-care (01) | DRG 639 ==
LOC: E/R 12:14 → ICU 13:25 → TEL 03-09 05:10
PROVIDERS: ADMIT Internal Medicine; ATTEND Internal Medicine
DX: E10.10 Type 1 diabetes mellitus with ketoacidosis without coma (principal); E86.0 Dehydration; F17.200 Nicotine dependence, unspecified, uncomplicated; Z91.14 Patient's other noncompliance with medication regimen; F41.1 Generalized anxiety disorder
CPT/HCPCS: 36415; 80048; 80053; 81003; 82803; 82962; 83036; 83735; 84100; 84439; 84443; 84480; 85025; 87081; 96374; J1650; J1815; J2405; J3475; J3480; J7030; J7050; J7070; J7120